=== PATIENT | female | born 1990 | race Caucasian/White ===

== ENCOUNTER → 2019-02-11 16:41 | Outpatient (CLI) | payer OTHER, SELFPAY ==
[2019-02-11 14:54] VITALS: BMI 32.3
[2019-02-11 18:45] LABS: Chlamydia Trachomatis by PCR Negative (Negative); Neisserai gonorrhoeae by PCR Negative (Negative); Probe Check PASS; Sample Adequacy Control PASS; Specimen Processing Control PASS
[2019-02-14 14:05] LABS: HPV Reflexed? NOT INDICATED
== END ==
PROVIDERS: Referring Provider Obstetrics & Gynecology; Visit Provider Obstetrics & Gynecology
DX: Z34.90 Encounter for supervision of normal pregnancy, unspecified, unspecified trimester (principal); Z12.4 Encounter for screening for malignant neoplasm of cervix
CPT/HCPCS: 87086; 87088; 87491; 87591; 87624; 88175; G0145

== ENCOUNTER → 2019-03-13 08:54 | Outpatient (CLI) | payer OTHER, SELFPAY ==
[2019-03-13 08:49] VITALS: BMI 32.3
[2019-03-13 09:46] LABS: Absolute Lymphocyte Count 2.08 X10^3/ul (0.83-4.51); Absolute Neutrophil Count 6.1 X10^3/uL (2.0-7.7); Basophil# 0.02 X10^3/uL; Basophil% 0.2 % (0-1); Eosinophil# 0.03 X10^3/uL; Eosinophils% 0.3 % (0-5); Hematocrit 35.4 % (37-47); Hemoglobin 12.4 g/dl (12.0-15.0); Lymphocyte # 2.08 X10^3/ul (4.0); Mean Corpuscular Hgb 30.1 pg (27.0-32.0); Mean Corpuscular Volume 85.9 fL (81-99); Monocyte# 0.44 X10^3/uL; Monocyte% 5.1 % (0-10); Neutrophil # 6.06 X10^3/uL (2.7-7.7); Neutrophil % 70.2 % (47-70); Platelet Count 196 K/mm3 (150-450); RBC Distribution Width CV 13.7 % (11.6-14.6); RBC Distribution Width SD 42.6 fl (35.1-43.9); Red Blood Count 4.12 M/mm3 (4.2-5.4); White Blood Count 8.7 K/mm3 (4.4-11.0)
[2019-03-13 10:00] LABS: POSITIVE COUNT NO; POSITIVE DIFFERENTIAL NO; POSITIVE MORPHOLOGY NO
[2019-03-13 10:09] LABS: Glucose Challenge Gest 1H 50g 125 mg/dL (70-140)
[2019-03-13 11:02] LABS: HIV - WCH Non-Reactive (Nonreactive); Rubella IgG 194.1 IU/mL
[2019-03-14 09:54] LABS: HEPATITIS B SURFACE AG Negative (Negative)
[2019-03-15 01:43] LABS: Rapid Plasmin Reagin (RPR) NONREACTIVE (NONREACTIVE)
== END ==
PROVIDERS: Referring Provider Obstetrics & Gynecology; Visit Provider Obstetrics & Gynecology
DX: Z34.90 Encounter for supervision of normal pregnancy, unspecified, unspecified trimester (principal)
CPT/HCPCS: 36415; 82950; 85025; 86592; 86703; 86762; 86850; 86900; 87340

== ENCOUNTER → 2019-04-09 11:54 | Outpatient (CLI) | payer OTHER, SELFPAY ==
[2019-03-13 08:49] VITALS: BMI 32.3
[2019-04-09 11:43] VITALS: BMI 32.3
--- NOTE | 2019-04-09 11:56 | US_ITS ---
STUDY: SECOND AND THIRD TRIMESTER OBSTETRICAL ULTRASOUND REASON FOR EXAM: Female, 28 years old. Anatomy screening. Complete 2nd trimester OB ultrasound. LMP: 11/13/2018. GA (LMP) 21 weeks 0 day, with ETTA 08/20/2019 TECHNIQUE: Transabdominal and transvaginal imaging. Transvaginal imaging was obtained for refined assessment of the cervix which was not well seen on transabdominal imaging. PRIOR ULTRASOUND: None. FINDINGS: Single live intrauterine gestation, breech presentation, cardiac rate 161 bpm. Amniotic fluid index normal 17 cm, maximum vertical pocket 5.1 cm. Cervical length 4.7 cm, closed. Placenta grade 0, posterior, not low-lying. Succenturiate band connecting to a small anterior placental lobe. The maternal adnexa are not assessed. BIOMETRY: BPD: 5.21: 21 weeks, 6 days HC: 19.6: 21 weeks, 6 days AC: 16.33: 21 weeks, 3 days FL: 3.46: 21 weeks, 0 days CI: 75% FL/BPD: 66% FL/AC: 21% HC/AC: 1.2 age by current US: 21 weeks, 4 days. ETTA by current US: 08/16/2019. Estimated weight: grams, +/- grams, %. Age by LMP: 21 weeks, 0 days. ETTA by LMP: 08/20/2019. ANATOMY: Gender: Male gender Cranium: Normal lateral ventricles. Normal choroid plexus. Normal cerebellum. Normal cisterna magna. Normal face, nose and lips. Chest: Normal 4-chamber heart. Abdomen/Pelvis: Normal diaphragm. Normal stomach. Normal abdominal wall. Normal cord insertion. Normal 3 vessel cord. Normal kidneys. Normal bladder. Spine: Normal cervical spine. Normal thoracic spine. Normal lumbar spine. Normal sacrum. Extremities: Normal bilateral upper extremities. Normal bilateral lower extremities. IMPRESSION: Satisfactory anatomic survey. No anatomic abnormality was observed. Succenturiate placenta. No acute or maternal abnormality is evident. Measurements are concordant with dates, within 4 days. Electronically Signed: Calin Trinh MD at 16:10 EDT Tel , Service support , STUDY: SECOND AND THIRD TRIMESTER OBSTETRICAL ULTRASOUND REASON FOR EXAM: Female, 28 years old. Anatomy screening. Complete 2nd trimester OB ultrasound. LMP: 11/13/2018. GA (LMP) 21 weeks 0 day, with ETTA 08/20/2019 TECHNIQUE: Transabdominal and transvaginal imaging. Transvaginal imaging was obtained for refined assessment of the cervix which was not well seen on transabdominal imaging. PRIOR ULTRASOUND: None. FINDINGS: Single live intrauterine gestation, breech presentation, cardiac rate 161 bpm. Amniotic fluid index normal 17 cm, maximum vertical pocket 5.1 cm. Cervical length 4.7 cm, closed. Placenta grade 0, posterior, not low-lying. Succenturiate band connecting to a small anterior placental lobe. The maternal adnexa are not assessed. BIOMETRY: BPD: 5.21: 21 weeks, 6 days HC: 19.6: 21 weeks, 6 days AC: 16.33: 21 weeks, 3 days FL: 3.46: 21 weeks, 0 days CI: 75% FL/BPD: 66% FL/AC: 21% HC/AC: 1.2 age by current US: 21 weeks, 4 days. ETTA by current US: 08/16/2019. Estimated weight: grams, +/- grams, %. Age by LMP: 21 weeks, 0 days. ETTA by LMP: 08/20/2019. ANATOMY: Gender: Male gender Cranium: Normal lateral ventricles. Normal choroid plexus. Normal cerebellum. Normal cisterna magna. Normal face, nose and lips. Chest: Normal 4-chamber heart. Abdomen/Pelvis: Normal diaphragm. Normal stomach. Normal abdominal wall. Normal cord insertion. Normal 3 vessel cord. Normal kidneys. Normal bladder. Spine: Normal cervical spine. Normal thoracic spine. Normal lumbar spine. Normal sacrum. Extremities: Normal bilateral upper extremities. Normal bilateral lower extremities. US/OB Anatomy Scan IMPRESSION: Satisfactory anatomic survey. No anatomic abnormality was observed. Succenturiate placenta. No acute or maternal abnormality is evident. Measurements are concordant with dates, within 4 days. Electronically Signed: Calin Trinh MD at 16:11 EDT Tel , Service support ,
== END ==
PROVIDERS: Referring Provider Obstetrics & Gynecology; Visit Provider Obstetrics & Gynecology
DX: O43.193 Other malformation of placenta, third trimester (principal); Z3A.00 Weeks of gestation of pregnancy not specified
CPT/HCPCS: 76805

== ENCOUNTER → 2019-05-15 10:11 | Outpatient (CLI) | payer OTHER, SELFPAY ==
[2019-05-15 10:04] VITALS: BMI 32.3
[2019-05-15 10:43] LABS: Absolute Lymphocyte Count 2.39 X10^3/uL (0.83-4.51); Absolute Neutrophil Count 7.1 X10^3/uL (2.0-7.7); Basophil# 0.06 X10^3/uL; Basophil% 0.6 % (0-1); Eosinophil# 0.09 X10^3/uL; Eosinophils% 0.9 % (0-5); Hematocrit 34.6 % (37-47); Hemoglobin 11.8 g/dL (12.0-15.0); Lymphocyte # 2.39 X10^3/ul (4.0); Lymphocyte % 23.2 % (19-41); Mean Corp Hgb Conc 34.1 g/dL (32-36); Mean Corpuscular Volume 90.8 fL (81-99); Monocyte# 0.64 X10^3/uL; Monocyte% 6.2 % (0-10); NRBC Flagged by Analyzer 0 % (0-5); Neutrophil # 7.05 X10^3/uL (2.7-7.7); Neutrophil % 68.3 % (47-70); Platelet Count 215 K/mm3 (150-450); RBC Distribution Width CV 13.6 % (11.6-14.6); RBC Distribution Width SD 45.4 fl (35.1-43.9); Red Blood Count 3.81 M/mm3 (4.2-5.4); White Blood Count 10.3 K/mm3 (4.4-11.0)
[2019-05-15 10:51] LABS: Glucose Challenge Gest 1H 50g 122 mg/dL (70-140)
== END ==
PROVIDERS: Referring Provider Obstetrics & Gynecology; Visit Provider Obstetrics & Gynecology
DX: Z34.92 Encounter for supervision of normal pregnancy, unspecified, second trimester (principal)
CPT/HCPCS: 36415; 82950; 85025

== ENCOUNTER → 2019-06-12 12:35 | Outpatient (CLI) | payer OTHER, SELFPAY ==
[2019-04-09 11:43] VITALS: BMI 32.3
[2019-06-12 10:48] VITALS: BMI 32.3
--- NOTE | 2019-06-12 12:38 | US_ITS ---
STUDY: SECOND AND THIRD TRIMESTER OBSTETRICAL ULTRASOUND - LIMITED REASON FOR EXAM: Female, 28 years old. , follow-up succenturiate Placenta LMP: 11/13/2018 PRIOR ULTRASOUND: 04/09/2019 TECHNIQUE: Transabdominal TECHNICAL QUALITY: Adequate. FINDINGS: There is a single intrauterine fetus. The fetus is in a cephalic presentation. There is demonstrated cardiac activity with a heart rate of 161 bpm. There is a normal amniotic fluid volume. The largest amniotic fluid pocket measures 6.1 cm. The amniotic fluid index (PAGE) is 18.7 cm. The placenta is posterior in location and is not low lying. There is a small lobe anteriorly consistent with succenturiate placenta. No placenta previa or vasa previa. There Are Grade 1 placental changes. The cervix measures 6.0 cm in length. BIOMETRY: BPD: 8.1 cm: 32 weeks, 4 days HC: 29.5 cm: 32 weeks, 4 days AC: 27.3 cm: 31 weeks, 3 days FL: 5.6 cm: 29 weeks, 5 days Age by LMP: 30 weeks, 1 days. ETTA by LMP: 08/20/2019. age by current US: 31 weeks, 4 days. ETTA by current US: 08/10/2019. Estimated weight: 1687 grams, +/- 246 grams, 69 percentile. Gender: US/OB Limited With Biometrics IMPRESSION: Living intrauterine of 31 weeks 4 days as described above. Posterior placenta with a succenturiate anterior lobe but without placenta previa or vasa previa. Electronically Signed: Calin Oneill MD at 10:33 EDT Tel , Service support ,
== END ==
PROVIDERS: Referring Provider Obstetrics & Gynecology; Visit Provider Obstetrics & Gynecology
DX: O43.193 Other malformation of placenta, third trimester (principal); Z3A.31 31 weeks gestation of pregnancy
CPT/HCPCS: 76816; 76817

== ENCOUNTER → 2019-07-24 12:51 | Outpatient (CLI) | payer OTHER, SELFPAY ==
[2019-07-24 10:20] VITALS: BMI 32.3
== END ==
PROVIDERS: Referring Provider Obstetrics & Gynecology; Visit Provider Obstetrics & Gynecology
DX: Z34.82 Encounter for supervision of other normal pregnancy, second trimester (principal)
CPT/HCPCS: 87081

== ENCOUNTER 2019-08-22 14:30 | Inpatient (IN) | payer SELFPAY, OTHER ==
[2019-02-11 14:54] VITALS: BMI 32.3
[2019-08-21 13:23] VITALS: BMI 32.3
[2019-08-22 15:01] VITALS: BMI 36.4
[2019-08-22] MEDS: Lactated Ringers 1,000 ML 50 ML IV (15:25)
[2019-08-22 15:41] LABS: Absolute Lymphocyte Count 2.41 X10^3/uL (0.83-4.51); Absolute Neutrophil Count 7.9 X10^3/uL (2.0-7.7); Basophil# 0.05 X10^3/uL; Basophil% 0.4 % (0-1); Eosinophil# 0.17 X10^3/uL; Eosinophils% 1.5 % (0-5); Hematocrit 37.5 % (37-47); Hemoglobin 12.7 g/dL (12.0-15.0); Lymphocyte # 2.41 X10^3/ul (4.0); Lymphocyte % 21.3 % (19-41); Mean Corp Hgb Conc 33.9 g/dL (32-36); Mean Corpuscular Hgb 30.5 pg (27.0-32.0); Mean Corpuscular Volume 90.1 fL (81-99); Mean Platelet Vol. 11.2 fl (6.2-12.0); Monocyte# 0.73 X10^3/uL; Monocyte% 6.5 % (0-10); NRBC Flagged by Analyzer 0 % (0-5); Neutrophil # 7.87 X10^3/uL (2.7-7.7); Neutrophil % 69.7 % (47-70); Platelet Count 196 K/mm3 (150-450); RBC Distribution Width CV 14.3 % (11.6-14.6); RBC Distribution Width SD 46.9 fl (35.1-43.9); Red Blood Count 4.16 M/mm3 (4.2-5.4); White Blood Count 11.3 K/mm3 (4.4-11.0)
[2019-08-22] MEDS: Nalbuphine 10 MG/ML Ampul IV (20:33)
[2019-08-22] MEDS: Lactated Ringers 500 ML 999 ML IV (21:24)
[2019-08-22] MEDS: fentaNYL-bupivacaine (epidural) 100 ML BAG EPIDURAL (22:07)
[2019-08-23] MEDS: Lactated Ringers 1,000 ML 200 ML IV (01:18)
[2019-08-23] MEDS: fentaNYL-bupivacaine (epidural) 100 ML BAG EPIDURAL (02:44)
[2019-08-23] MEDS: Lactated Ringers 500 ML 999 ML IV (04:18)
[2019-08-23] MEDS: Oxytocin 30 units/NS 500 ml 30 UNITS/500 ML IV.SOLN 334 UNITS IV (05:10)
--- NOTE | 2019-08-23 05:33 | HP.PCM_ITS ---
- Problem List (1) SROM (spontaneous rupture of membranes) Status: Acute (2) Status: Acute Comment: Prefers IOL at 41 wk (3) Influenza vaccination declined Status: Acute Comment: declined on 07/10/19 (4) PUPPP (pruritic urticarial papules and plaques of ) Status: Acute (5) Placenta succenturiata in third trimester Status: Acute Comment: nl growth (6) Obesity affecting Status: Acute Qualifiers: Comment: 1 tm glucola nl. encouraged healthy weight gain (7) Supervision of normal Status: Acute Qualifiers: Comment: PRR ETTA 08/20/19 boy Pablo Olson Trevor (8) History of delivery Status: Acute Comment: plan TOLAC, 70% likelihood of success. consent signed patient counseled regard R/B. History and Physical Date of Admission: 08/22/19 Intake Vital Signs 08/21/19 Body Mass Index (BMI) 32.3 08/21/19 Height 5 ft 6 in 08/21/19 Weight: 208 lb 08/21/19 Body Mass Index (BMI) 33.5 08/21/19 Blood Pressure 118/80 08/14/19 Body Mass Index (BMI) 32.3 Intake Visit Reasons: 40 WK OB Chief Complaint: est ob Lidar Technician Required: No Is patient in pain?: No Allergies No Known Allergies Allergy (Verified 08/22/19 15:05) Medications vitamin#30 30 mg iron-10 mg iron-folic acid 1 mg-omg3 capsule 1 cap PO DAILY cap 02/11/19 [History Confirmed 08/22/19] Last Menstral Period: 11/13/18 Zika: Zika virus screening: Negative : No PFSH PFSH Surgical History delivery delivered (Acute) Family History Grandfather Colon cancer Diabetes Social History (Updated 08/22/19 @ 18:10 by Aranza Zamora MD) Smoking Status: Never smoker alcohol intake: never substance use type: does not use caffeine: Yes what type of physical activity do you participate in: walking seatbelt use: always do you feel safe at home: Yes additional social history: [place] Patient is unemployed Pregancy History 2 Elective abortions Hx Para 1 Spontaneous abortions Hx # Term Pregnancies 1 Ectopic pregnancies Hx # Pregnancies Multiple births # of living children 1 Past Pregnancies Del. Date Name GA/Weeks Outcome Route Bth Weight Gen Labor Lgth Anesthesia Del Locatn Provider FOB Unknown 2016 Wesley Fox live - full term 7l bs 3oz Male Minnie Murray Delivery Date: On 02/11/19 @ 14:59 Denia Carrillo Breech,failed version HPI 40 WK OB: Details: GERARD ROSA is a 28 year old who presents with SROM clear fluid. she is having regular contractions and some bloody show. she has good FM OB Visit ETTA Calculator Estimated Delivery Date Method Current WG Current Estimate 08/20/19 LMP (Certain) 40w 2d Expected Delivery Route/Plan tolac patient counseled regarding risks/benefits of trial of labor versus repeat . ACOG and uptodate education given to patient. % likelihood of success per calculator TOLAC consent form signed: yes Labor Preferences- labor support person: trevor pain management options preferred: minimal intervention cut cord/dad catch: : PP control planned: [] discussed possible routes of delivery and associated risks: [] special requests: [] Specific Issue/Plans flu vaccine: declines tdap vaccine: declines rhogam: na LARC form signed: declines Problem list reviewed and updated with the most current plan of care details and appropriate orders placed. Relevant counseling for the gestational age provided. Continue routine care and follow up unless otherwise noted in visit notes/problem list details Initial Weight: 200 lb Date EGA Weight BP Urine Prot Glucose FHR FuHt Pres Mov CTX Dilation Effaced St Visit Note 03/13/19 17w 1d 197 lb (-3 lb) 104/62 145 no vb lof cramping. bloodwork today 04/09/19 21w 0d 197 lb 4 oz (-2 lb 12 oz) 112/72 Negative Negative 140 21 no vb cramping anatomy us today 05/15/19 26w 1d 201 lb (+16 oz) 98/56 Negative Negative 150 26 no vb lof good fm no regular ctx cbc gct considering tdap 06/12/19 30w 1d 203 lb 6 oz (+3 lb 6 oz) 114/74 Negative Negative 140 31 Breech Active absent no vb lof signed consent forms 06/26/19 32w 1d 205 lb (+5 lb) 116/74 Negative Negative 140 33 Active absent no vb lof 07/10/19 34w 1d 208 lb (+8 lb) 110/84 Negative Negative 140 35 no vb lof good fm no reg ctx 07/24/19 36w 1d 208 lb (+8 lb) 108/80 Trace Negative 150 37 Cephalic 1.5 20 -4 no vb lof good fm no reg ctx 07/31/19 37w 1d 209 lb 6 oz (+9 lb 6 oz) 110/64 Negative Negative 143 38 Cephalic 1.5 -4 Confirmed per US cephalic. NO VB, LOF 08/07/19 38w 1d 210 lb 2 oz (+10 lb 2 oz) 110/80 Negative Negative 140 40 Cephalic no vb lof good fm no regular ctx plan iol or repeat cs at 41 weeks 08/14/19 39w 1d 211 lb (+11 lb) 130/80 Negative Negative 142 40 Cephalic 1.5 40 -3 NO VB, LOF. Good FM NO VB, LOF. Good FM. Prefers IOL at 41 wk 08/21/19 40w 1d 208 lb (+8 lb) 118/80 Negative Negative 140 41 Cephalic 2.5 no vb lof good fm no regular ctx membranes swept Visit Notes Visit Date: 08/21/19 ??no vb lof good fm no regular ctx membranes swept ??Aranza Zamora MD on 08/22/19 Visit Date: 08/14/19 ??NO VB, LOF. Good FM. Prefers IOL at 41 wk ?KRISTIN Sarah on 08/14/19 ??NO VB, LOF. Good FM ??KRISTIN Sarah on 08/14/19 Visit Date: 08/07/19 ??no vb lof good fm no regular ctx plan iol or repeat cs at 41 weeks ??Aranza Zamora MD on 08/07/19 Visit Date: 07/31/19 ??Confirmed per US cephalic. NO VB, LOF ??KRISTIN Sarah on 07/31/19 Visit Date: 07/24/19 ??no vb lof good fm no reg ctx ??Aranza Zamora MD on 07/24/19 Visit Date: 07/10/19 ??no vb lof good fm no reg ctx ??Aranza Zamora MD on 07/10/19 Visit Date: 06/26/19 ??no vb lof ??Aranza Zamora MD on 06/26/19 Visit Date: 06/12/19 ??no vb lof signed consent forms ??Aranza Zamora MD on 06/12/19 Visit Date: 05/15/19 ??no vb lof good fm no regular ctx cbc gct considering tdap ??Aranza Zamora MD on 05/15/19 Visit Date: 04/09/19 ??no vb cramping anatomy us today ??Aranza Zamora MD on 04/09/19 Visit Date: 03/13/19 ??no vb lof cramping. bloodwork today ??Aranza Zamora MD on 03/13/19 ACOG First Trimester First Trimester: Desire for , Alcohol, Tobacco Cessation, Illicit/Recreational Drug/Substance Use, Intimate Partner Violence, Barriers to care, Unstable Housing, Communication Barriers, Environmental/Work Hazards, Anticipated Course of Care, Toxoplasmosis Precations, Use of Any medications, Sexual activity, Exercise, Dental Care, Sauna/Hot tub use, Seat Belt use, Childbirth classes/Hospital facilities, , Travel, Indications for US and Screening for Aneuploidy Second Trimester Second Trimester: Signs and Symptoms of Labor, Selecting a care provider, Reproductive Life Planning, Care Planning, Tobacco Cessation, Depression/Anxiety and Intimate Partner Violence Third Trimester Third Trimester: Pain Management Plans, Labor support person(s), Immediate Larc, Movement Monitoring and Infant Feeding Yes ; discussed Trial of Labor after Counseling or discussed Circumcision preference Diagnostics Diagnostics Diagnostics Blood Type AB POSITIVE 08/22/19 Antibody Screen NEGATIVE 08/22/19 Glucose 1 Hr 50 gm 122 mg/dL (70-140) 05/15/19 Hgb 12.7 g/dL (12.0-15.0) 08/22/19 Hct 37.5 % (37-47) 08/22/19 Details: HIV: Urine Culture: Sequential Screen: NIPT Screen: ROS Const Reports system reviewed and no additional complaints, except as docu Card Reports system reviewed and no additional complaints, except as docu Resp Reports system reviewed and no additional complaints, except as docu GI Reports system reviewed and no additional complaints, except as docu, Reports nausea Reports system reviewed and no additional complaints, except as docu Musc Reports system reviewed and no additional complaints, except as docu Exam Const General: cooperative, healthy appearing, comfortable, anxious [facility] Head: normal to inspection Nose: external nose normal Face and sinus: normal facial exam Neck Neck: normal visual inspection, full ROM, no lymphadenopathy Thyroid: thyroid normal Chest Chest palpation & inspection: normal inspection of the chest Resp Effort & Inspection: normal respiratory effort GI Inspection: normal to inspection Palpation: soft, other (gravid uterus) Other: infant vertex and appropriate size for gestational age Other: Cervical Exam: Extrem General: pedal edema Results [id number] Office Urine Glucose Negative Last Edit by Denia Carrillo on 08/21/19 13:2 7 Office Urine Protein Negative Last Edit by Denia Crarillo on 08/21/19 13:2 7 Assessment & Plan Problems 1. Z34.90 2. Influenza vaccination declined Z28. 3. PUPPP (pruritic urticarial papules and plaques of ) O26.86 4. Obesity affecting in second trimester O99.212 5. Encounter for supervision of other normal in second trimester Z34.82 6. History of delivery Z98.891 7. Placenta succenturiata in third trimester O43.193 Orders plan admission IAL TOLAC- consent signed gbs neg plan epidural Orders: POC Urinalysis 2 Dip (Clinic) 08/21/19 Coding Level of Care Code OB Routine Diagnoses Z34.90 Influenza vaccination declined Z28.21 PUPPP (pruritic urticarial papules and plaques of ) O26.86 Obesity affecting in second trimester O99.212 ??Trimester: second trimester Encounter for supervision of other normal in second trimester Z34.82 ??Normal : other normal ??Trimester: second trimester History of delivery Z98.891 Placenta succenturiata in third trimester O43.193
--- NOTE | 2019-08-23 05:34 | PCM.OPRPT ---
Problem List (1) SROM (spontaneous rupture of membranes) Status: Acute (2) Status: Acute Comment: Prefers IOL at 41 wk (3) Influenza vaccination declined Status: Acute Comment: declined on 07/10/19 (4) PUPPP (pruritic urticarial papules and plaques of ) Status: Acute (5) Placenta succenturiata in third trimester Status: Acute Comment: nl growth (6) Obesity affecting Status: Acute Qualifiers: Comment: 1 tm glucola nl. encouraged healthy weight gain (7) Supervision of normal Status: Acute Qualifiers: Comment: PRR ETTA 08/20/19 sis Olson Trevor (8) History of delivery Status: Acute Comment: plan TOLAC, 70% likelihood of success. consent signed patient counseled regard R/B. Vaginal Delivery Maternal Presentation: Active Labor, Spontaneous Rupture of Membranes ial 40w TOLAC Amniotic Membrane Rupture Type: Spontaneous at home Amniotic Fluid Description: Clear Final ETTA: 08/19/19 Gestational age: 40 Weeks and 4 Days Date of Procedure: 08/23/19 Pre-Operative Diagnosis: ial tolac Post-Operative Diagnosis: same Surgery/ Procedure Performed: Spontaneous Vaginal Delivery Type of Anesthesia: Epidural Description of Procedure: Patient began pushing and delivered the head in the KOURTNEY presentation. The head was delivered atraumatically and a tight nuchal cord ?1 was identified and was cut on the perineum after anterior shoulder delivery because it could not be reduced over the infant's head. The posterior shoulders delivered without complication followed by the rest of the infant and the infant was placed on the maternal abdomen. Delayed cord clamping was employed for approximately 60 seconds. Cord was clamped and cut and gentle traction was applied to the cord and the placenta delivered spontaneously immediately following it was noted to be intact with three-vessel cord. The perineum and vagina were inspected and noted to have a second-degree perineal laceration that was repaired in the usual fashion with 3-0 Vicryl Rapide. EBL was 100 cc. Patient and infant tolerated delivery well. Presentation: KOURTNEY Placental Delivery Description: Spontaneous Placenta Disposition: [facility] Cord Vessel Description: 3 Vessels Cord Entanglement: None Estimated Blood Loss: 200 Infant A gender: Male Episiotomy Description: None Laceration: Perineal Extension/lac, 2nd degree Medications given after delivery: IV Pitocin Complications: None
[2019-08-23] MEDS: Naproxen 250 MG Tablet 500 MG PO ×2 (08:37→17:23)
[2019-08-23 12:00] VITALS: BP 117/63; PULSE 123; TEMP 36.6
[2019-08-23] MEDS: Acetaminophen 500 MG Tablet 1000 MG PO (13:52)
[2019-08-23 15:45] VITALS: BP 114/58; PULSE 68; RESP 16; TEMP 36.9
--- NOTE | 2019-08-23 17:04 | CASEMGMT ---
Social work Labor and Delivery Social work consulted received today for PHQ9. Score is 4. Chart reviewed and then met with mother of baby for assessment this date. Full assessment to follow in the chart. Plan: MOB and baby to home. MOB has been provided with resources for mood and anxiety disorders, signs to look for, when to get further help, and list of community services in [facility]. -KYLER Cruz, FINISHER OPERATOR
[2019-08-23 20:20] VITALS: BP 109/60; PULSE 67; RESP 18; TEMP 36.2; O2SAT 97
--- NOTE | 2019-08-23 21:45 | DCINST_ITS ---
Discharge Diet: No Restrictions Discharge Activity: Return to Normal Activity, May not drive while taking narcotic pain medications., May Shower May resume sexual activity in: 4-6 weeks Call your doctor if your incision/area has: Continuous Slow Oozing, Sudden Increased Bleeding, Increased Pain/ Swelling, Increased Redness, Foul Smelling Discharge Additional Instructions: If you experience any of the following, contact your healthcare provider. * Bleeding that soaks a pad every hour for 2 hours * Fever 100.4 or higher * Unrelieved incision or abdominal pain * Swelling, redness, discharge or bleeding from your incision or episiotomy site * Your incision begins to separate * Problems urinating (including inability to urinate or burning while urinating). * Visual changes * Severe headache * Flu-like symptoms * Pain or redness in one of both of your breasts * Pain, warmth, tenderness or swelling in your legs, especially the calf area * Frequent nausea and vomiting * Symptoms of depression or anxiety If you experience any of the following, call 911 or go to the nearest Emergency Room. * Chest pain * Problems breathing * Seizure activity * Partial or complete paralysis of a body part, slurred speech, weakness or drooping of the face, or a sudden inability to walk or hold your balance Allergies/Adverse Reactions: Allergies No Known Allergies Allergy (Verified 08/22/19 15:05) Medications to take at Discharge vitamin#30 30 mg iron-10 mg iron-folic acid 1 mg-omg3 capsule 1 cap PO DAILY cap 02/11/19 Please Follow Up With: Aranza Zamora MD - [phone] When: Call to make an appointment with your doctor in 6 weeks. If you had elevated Blood pressure or 4th degree laceration you will need to be seen in 2 weeks. Test Results: Test results from this visit will be discussed in further detail at your follow- up appointment, if applicable.
--- NOTE | 2019-08-23 21:45 | PCM.DCVAG ---
Discharge Diet: No Restrictions Discharge Activity: Return to Normal Activity, May not drive while taking narcotic pain medications., May Shower May resume sexual activity in: 4-6 weeks Call your doctor if your incision/area has: Continuous Slow Oozing, Sudden Increased Bleeding, Increased Pain/ Swelling, Increased Redness, Foul Smelling Discharge Additional Instructions: If you experience any of the following, contact your healthcare provider. Bleeding that soaks a pad every hour for 2 hours Fever 100.4 or higher Unrelieved incision or abdominal pain Swelling, redness, discharge or bleeding from your incision or episiotomy site Your incision begins to separate Problems urinating (including inability to urinate or burning while urinating). Visual changes Severe headache Flu-like symptoms Pain or redness in one of both of your breasts Pain, warmth, tenderness or swelling in your legs, especially the calf area Frequent nausea and vomiting Symptoms of depression or anxiety If you experience any of the following, call 911 or go to the nearest Emergency Room. Chest pain Problems breathing Seizure activity Partial or complete paralysis of a body part, slurred speech, weakness or drooping of the face, or a sudden inability to walk or hold your balance Allergies/Adverse Reactions: Allergies No Known Allergies Allergy (Verified 08/22/19 15:05) Medications to take at Discharge vitamin#30 30 mg iron-10 mg iron-folic acid 1 mg-omg3 capsule 1 cap PO DAILY cap 02/11/19 Please Follow Up With: Aranza Zamora MD - [phone] When: Call to make an appointment with your doctor in 6 weeks. If you had elevated Blood pressure or 4th degree laceration you will need to be seen in 2 weeks. Test Results: Test results from this visit will be discussed in further detail at your follow-up appointment, if applicable.
[2019-08-23 23:45] VITALS: BP 106/54; PULSE 79; RESP 18; TEMP 36.2; O2SAT 98
[2019-08-24 03:25] VITALS: BP 108/56; PULSE 77; RESP 16; TEMP 36.1; O2SAT 97
[2019-08-24] MEDS: Naproxen 250 MG Tablet 500 MG PO ×2 (03:28→11:53)
--- NOTE | 2019-08-24 09:19 | PCM.PN.OB ---
Patient Problems: Active and Suspected Problems (Last Reviewed 08/21/19 @ 13:22 by Denia Carrillo) SROM (spontaneous rupture of membranes) (Acute) Subjective: doing well no complaints pain controlled no CP SOB N V ambulating well tolerating po lochia moderate, going well - Physical Exam Vitals/I&O's: Vital Signs Temp Pulse Resp BP Pulse Ox 97.0 F L 77 16 108/56 L 97 08/24/19 03:25 08/24/19 03:25 08/24/19 03:25 08/24/19 03:25 08/24/19 03:25 Oxygen Delivery Method Room Air Weight: 205 lb 11.06 oz Body Mass Index (BMI) 36.4 Intake and Output for Last 24 Hours 08/22/19 08/23/19 08/24/19 23:59 23:59 23:59 Intake Total 1249.17 / 1249.17 2346.67 / 2346.67 Output Total 200 / 200 400 / 400 Balance 1049.17 / 1049.17 1946.67 / 1946.67 General: Alert, Oriented x3 Current Medications Acetaminophen (Tylenol) 1,000 mg PO Q8H PRN PRN PRN Reason: Pain Score 1-3/10 Last Admin: 08/23/19 13:52 Dose: 1,000 mg Documented by: Bisacodyl (Dulcolax) 10 mg RECTAL UD PRN PRN Reason: If no BM Dibucaine (Dibucaine) 1 applic TOPICAL TID PRN PRN; Protocol PRN Reason: Discomfort Hydrocortisone (Hytone) 1 applic TOPICAL TID PRN PRN; Protocol PRN Reason: Discomfort Methylergonovine Maleate (Methergine) 0.2 mg IM X1 PRN PRN Reason: Excess bleeding/uterine atony Naproxen (Naprosyn) 500 mg PO Q8H PRN PRN PRN Reason: Pain Score 1-3/10 Last Admin: 08/24/19 03:28 Dose: 500 mg Documented by: Ondansetron HCl (Zofran) 4 mg IV Q4H PRN PRN PRN Reason: Nausea Oxycodone HCl (Oxyir) 5 - 10 mg PO Q4H PRN PRN PRN Reason: Pain Score 4-10/10 Senna/Docusate Sodium (Senokot-S, Radha-Colace) 1 - 2 tablet PO DAILY PRN PRN PRN Reason: Constipation Simethicone (Mylicon) 80 mg PO PCHS PRN PRN Reason: Indigestion/Stomach pain Sodium Chloride () 5 - 15 ml IV UD PRN PRN Reason: SALINE FLUSH Medical Necessity - Tobacco Use Smoking Status: Never smoker Assessment/Plan All Active Problems (Last Reviewed 08/21/19 @ 13:22 by Denia Carrillo) SROM (spontaneous rupture of membranes) (Acute) (Acute) Influenza vaccination declined (Acute) PUPPP (pruritic urticarial papules and plaques of ) (Acute) Placenta succenturiata in third trimester (Acute) Obesity affecting (Acute) Supervision of normal (Acute) History of delivery (Acute) s/p PPD # 1 1. routine post delivery care 2. breast feeding- support given 3. rh positive 4. rubella immune
[2019-08-24 10:00] VITALS: BP 106/60; PULSE 79; RESP 16; TEMP 36.6; O2SAT 100
--- NOTE | 2019-08-26 10:08 | CASEMGMT ---
Social Work Assessment (late entry of assessment occurring on 08.23.2019) Labor and Delivery Unit Date of Referral: 08.23.2019 Time of Referral: 930 Referred By: Dr. Zamora Date of Intervention: 08.23.2019 Time of Intervention: 1500 Reason for Referral: PHQ9 score of 4 History obtained from: medical records and mother of baby (JESSIE) Santa Guillermo Household composition: MOB, father of baby (FOB) and their older child. MOB reports home situation is safe and adequate. Patient's parent/guardian status: JESSIE is age 26, to FOB Trevor Guillermo. MOB and FOB are from the [facility]. MOB denies any form of abuse in this marriage, denies any safety concerns at home. MOB and FOB now have 2 children: Pablo (born 08.23.2017) and Wesley (born 2015 at [facility]). Medical History: JESSIE is G2, P1 to 2 after delivering Pablo. care starting at [address] Zamora. Delivery a , with MOB reporting that first delivery was an emergency . Baby Pablo born at 40 weeks, weight 8 pounds 1 ounce, Apgars 3 and 9 at 1 and 5 minutes of life. Cord wrapped around baby?s neck at . Educational Status: JESSIE has an 8th grade education, as is the norm for the [employer] community. No reported issues with reading, writing, or comprehension. Financial Status: FOErica is employed, and JESSIE works in the home. Infant Supplies: It is reported the family has all needed supplies to get started including a safe sleep space for baby and a car seat. 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 Programs/Agencies Involved: No current agency involvement. Reports [facility] just ended last week for older son Wesley. Children Services/Legal Issues: None reported. Behavioral Health Issues: Mental Health History: JESSIE reports she may have had the baby blues for about a week and a half after Wesley was born, indicated it was a lot to take in with having a delivery. MOB denies any history of thoughts, planning, attempts, or intent or suicide. Denies any history of medicine or counseling. Substance Use History: MOB denies. Family History: None reported. Drug Screens: None noted in chart for MOB or baby. Family/Social Stressors: No stressors shared or discussed other than MOB feeling lack of energy, little interest in things, and feeling badly about self over the last week or two. MOB attributes this to mood and end of . Support Systems: MOB reports FOB is support. MOB will have help at home for 6 weeks from either MOB?s sister or FOB?s sister, which MOB reports to feel will be a positive thing. Depression/Shaken Baby/Safe Sleeping: Information given on all topics. ASSESSMENT: Met with MOB in room alone. MOB up and moving around, attending to baby. MOB handled baby appropriately and gently. MOB repots to be feeling okay right now, denies feeling that symptoms check on the PHQ9 are impacting care of self or baby. Educated MOB that if symptoms change or worsen this would be an indicator to talk to Dr. Zamora. MOB voiced understanding and agreement, as well as reported that if medication is ever recommended would be willing to take if would be helpful to self and family. Talked with MBO about risk factors and what to look for. MOB denies any concerns currently. Reports to feel a connection to the baby and to feel good physically right now which is helpful. MOB declined a [facility] referral for this baby but reports to know how to access if the need arises in the future. MOB accepting of mood and anxiety disorder packet, as well as accepted resource list of agencies for [facility]. MOB held good eye contact, affect appropriate and normal. PLAN: MOB and baby to home when ready. Resource information for home going in place. No other services requested or indicated. -MICHAEL Cruz, SALES LEDGER ADMINISTRATOR
== END 2019-08-24 13:50 | disposition home or self-care (01) | DRG 807 ==
PROVIDERS: Admitting Provider Obstetrics & Gynecology; Referring Provider Obstetrics & Gynecology; Visit Provider Obstetrics & Gynecology
DX: O34.219 Maternal care for unspecified type scar from previous cesarean delivery (principal); Z37.0 Single live birth; O42.92 Full-term premature rupture of membranes, unspecified as to length of time between rupture and onset of labor; O70.1 Second degree perineal laceration during delivery; O69.1XX0 Labor and delivery complicated by cord around neck, with compression, not applicable or unspecified; Z28.21 Immunization not carried out because of patient refusal; O99.214 Obesity complicating childbirth; E66.9 Obesity, unspecified; O26.86 Pruritic urticarial papules and plaques of pregnancy (PUPPP); O43.193 Other malformation of placenta, third trimester; Z3A.40 40 weeks gestation of pregnancy; Z87.59 Personal history of other complications of pregnancy, childbirth and the puerperium
CPT/HCPCS: 59025; 59050; 85025; 86850; 86900; 86901; 99218; J7120; G0378

== ENCOUNTER 2022-01-10 08:22 | Outpatient (CLI) | payer SELFPAY, OTHER ==
--- NOTE | 2022-01-10 08:28 | US_ITS ---
STUDY: SECOND AND THIRD TRIMESTER OBSTETRICAL ULTRASOUND - LIMITED REASON FOR EXAM: Female, 31 years old well being LMP: ALETHA second 2021. PRIOR ULTRASOUND: None. TECHNIQUE: Transabdominal TECHNICAL QUALITY: Adequate. FINDINGS: There is a single intrauterine fetus. The fetus is in a variable presentation. There is demonstrated cardiac activity with a heart rate of 141 bpm. There is a normal amniotic fluid volume. The amniotic fluid index (PAGE) is within normal limits. The placenta is anterior and low lying but not previa in location. There are Grade 0 placental changes. The cervix measures 4.5 cm in length. BIOMETRY: BPD: 2.94 cm: 15 weeks, 2 days HC: 10.62 cm: 15 weeks, 0 days AC: 8.87 cm: 15 weeks, 0 days FL: 1.36 cm: 14 weeks, 0 days Age by LMP: 14 weeks, 1 days. ETTA by LMP: 07/10/2022. age by current US: 14 weeks, 5 days. ETTA by current US: 07/06/2022. Estimated weight: 103 grams, +/- 15 grams, 69 percentile. US/OB Limited With Biometrics IMPRESSION: Single live intrauterine gestation with a mean gestational age of 14 weeks and 5 days. There is evidence of an anterior low-lying placenta or previa. Electronically Signed: Jones Bernardo MD at 15:17 EDT ,
== END 2022-01-10 23:59 | disposition home or self-care (01) ==
PROVIDERS: Visit Provider Obstetrics & Gynecology
DX: Z34.92 Encounter for supervision of normal pregnancy, unspecified, second trimester (principal); Z3A.14 14 weeks gestation of pregnancy
CPT/HCPCS: 76816

== ENCOUNTER → 2022-01-20 | Outpatient (CLI) | payer OTHER, SELFPAY ==
[2022-01-20 14:48] LABS: Absolute Lymphocyte Count 2.38 X10^3/uL (0.83-4.51); Absolute Neutrophil Count 6.2 X10^3/uL (2.0-7.7); Basophil# 0.04 X10^3/uL; Basophil% 0.4 % (0-1); Eosinophil# 0.08 X10^3/uL; Eosinophils% 0.9 % (0-5); Hematocrit 35.5 % (37-47); Hemoglobin 12.1 g/dL (12.0-15.0); Lymphocyte # 2.38 X10^3/ul (0.83-4.51); Lymphocyte % 25.5 % (19-41); Mean Corp Hgb Conc 34.1 g/dL (32-36); Mean Corpuscular Hgb 29.9 pg (27.0-32.0); Mean Corpuscular Volume 87.7 fL (81-99); Monocyte# 0.53 X10^3/uL; Monocyte% 5.7 % (0-10); NRBC Flagged by Analyzer 0 % (0-5); Neutrophil # 6.24 X10^3/uL (2.7-7.7); Neutrophil % 66.9 % (47-70); Platelet Count 216 K/mm3 (150-450); RBC Distribution Width CV 13.2 % (11.6-14.6); RBC Distribution Width SD 42.3 fl (35.1-43.9); Red Blood Count 4.05 M/mm3 (4.2-5.4); White Blood Count 9.3 K/mm3 (4.4-11.0)
[2022-01-20 15:25] LABS: Glucose Challenge Gest 1H 50g 147 mg/dL (70-140)
[2022-01-27 14:10] LABS: HPV Reflexed? NOT INDICATED
== END | disposition home or self-care (01) ==
PROVIDERS: Referring Provider Obstetrics & Gynecology; Visit Provider Obstetrics & Gynecology
DX: Z34.90 Encounter for supervision of normal pregnancy, unspecified, unspecified trimester (principal)
CPT/HCPCS: 36415; 82950; 85025; 86850; 86900; 86901; 87086; 87088; 88175; G0145

== ENCOUNTER → 2022-01-31 | Outpatient (CLI) | payer OTHER, SELFPAY ==
[2022-01-31 08:25] LABS: Glucose GTT-Gestation. Fasting 101 mg/dL (<105)
[2022-01-31 09:27] LABS: Glucose GTT-Gestational 1 Hr 176 mg/dL (<190)
[2022-01-31 10:56] LABS: Glucose GTT-Gestational 2 Hr 131 mg/dL (<165)
[2022-01-31 11:58] LABS: Glucose GTT-Gestational 3 Hr 85 L (<145)
== END | disposition home or self-care (01) ==
LOC: LAB 07:39
PROVIDERS: PCP Family Medicine; Referring Provider Obstetrics & Gynecology; Visit Provider Obstetrics & Gynecology
DX: Z13.1 Encounter for screening for diabetes mellitus (principal)
CPT/HCPCS: 36415; 82951; 82952

== ENCOUNTER → 2022-02-17 | Outpatient (CLI) | payer SELFPAY, OTHER ==
--- NOTE | 2022-02-17 10:52 | US_ITS ---
STUDY: SECOND AND THIRD TRIMESTER OBSTETRICAL ULTRASOUND REASON FOR EXAM: Female, 31 years old . anatomy. LMP: 10/03/2021 TECHNIQUE: Transabdominal and Transvaginal TECHNICAL QUALITY: Adequate. PRIOR ULTRASOUND: None. FINDINGS: There is a single intrauterine fetus. The fetus is in a variable presentation. There is demonstrated cardiac activity with a heart rate of 140 bpm. There is a normal amniotic fluid volume. The largest amniotic fluid pocket measures 5 cm. The amniotic fluid index (PAGE) is within normal limits. The placenta is anterior in location and is not low lying. There are Grade 0 placental changes. The cervix measures 4.7 cm in length. The bilateral adnexal regions are normal. BIOMETRY: BPD: 4.8 cm: 20 weeks, 3 days HC: 17.65 cm: 20 weeks, 0 days AC: 15.5 cm: 20 weeks, 4 days FL: 3.05 cm: 19 weeks, 3 days CI: 78% FL/BPD: 64% FL/HC: FL/AC: 20% HC/AC: 1.14 age by current US: 20 weeks, 0 days. ETTA by current US: 07/07/2022. Estimated weight: 339 grams, +/- 51 grams, 79 %. age by prior US: 20 weeks, 1 days. ETTA by prior US: 07/06/2022. Age by LMP: 19 weeks, 4 days. ETTA by LMP: 07/10/2022. ANATOMY: Gender: Female Cranium: Normal lateral ventricles. Normal choroid plexus. Normal cerebellum. Normal cisterna magna. Normal face, nose and lips. Chest: Normal 4-chamber heart. Abdomen/Pelvis: Normal diaphragm. Normal stomach. Normal abdominal wall. Normal cord insertion. Normal 3 vessel cord. Left renal pelvis is mildly dilated at 5 mm. Normal bladder. Spine: Normal cervical spine. Normal thoracic spine. Normal lumbar spine. Normal sacrum. Extremities: Normal bilateral upper extremities. Normal bilateral lower extremities. US/OB Anatomy Scan IMPRESSION: Single live intrauterine gestation with a mean gestational age of 20 weeks and 1 day. The measurements are obtained following thin the normal expected range. Electronically Signed: Jones Bernardo MD at 12:48 EDT ,
== END | disposition home or self-care (01) ==
LOC: US 10:51
PROVIDERS: PCP Family Medicine; Referring Provider Obstetrics & Gynecology; Visit Provider Obstetrics & Gynecology
DX: O44.42 Low lying placenta NOS or without hemorrhage, second trimester (principal); Z3A.20 20 weeks gestation of pregnancy
CPT/HCPCS: 76805; 76817

== ENCOUNTER → 2022-04-15 | Outpatient (CLI) | payer OTHER, SELFPAY ==
[2022-04-15 12:01] LABS: Glucose Challenge Gest 1H 50g 145 mg/dL (70-140)
[2022-04-15 12:11] LABS: Absolute Lymphocyte Count 2.06 X10^3/uL (0.83-4.51); Absolute Neutrophil Count 6.4 X10^3/uL (2.0-7.7); Basophil# 0.05 X10^3/uL; Basophil% 0.5 % (0-1); Eosinophil# 0.07 X10^3/uL; Eosinophils% 0.8 % (0-5); Hematocrit 34.3 % (37-47); Hemoglobin 11.6 g/dL (12.0-15.0); Lymphocyte # 2.06 X10^3/ul (0.83-4.51); Lymphocyte % 22.2 % (19-41); Mean Corp Hgb Conc 33.8 g/dL (32-36); Mean Corpuscular Hgb 30.4 pg (27.0-32.0); Mean Corpuscular Volume 89.8 fL (81-99); Mean Platelet Vol. 9.9 fl (6.2-12.0); Monocyte# 0.56 X10^3/uL; NRBC Flagged by Analyzer 0 % (0-5); Neutrophil # 6.36 X10^3/uL (2.7-7.7); Neutrophil % 68.8 % (47-70); Platelet Count 223 K/mm3 (150-450); RBC Distribution Width CV 13.4 % (11.6-14.6); Red Blood Count 3.82 M/mm3 (4.2-5.4); White Blood Count 9.3 K/mm3 (4.4-11.0)
== END | disposition home or self-care (01) ==
LOC: PAVLAB 11:28
PROVIDERS: PCP Family Medicine; Referring Provider Nurse Practitioner Women's Health; Visit Provider Nurse Practitioner Women's Health
DX: Z34.90 Encounter for supervision of normal pregnancy, unspecified, unspecified trimester (principal); Z13.1 Encounter for screening for diabetes mellitus
CPT/HCPCS: 36415; 82950; 85025

== ENCOUNTER → 2022-04-25 | Outpatient (CLI) | payer OTHER, SELFPAY ==
[2022-04-25 08:09] LABS: Glucose GTT-Gestation. Fasting 99 mg/dL (<105)
[2022-04-25 08:59] LABS: Glucose GTT-Gestational 1 Hr 211 mg/dL (<190)
[2022-04-25 09:57] LABS: Glucose GTT-Gestational 2 Hr 156 mg/dL (<165)
[2022-04-25 12:08] LABS: Glucose GTT-Gestational 3 Hr 76 L (<145)
== END | disposition home or self-care (01) ==
LOC: LAB 07:06
PROVIDERS: PCP Family Medicine; Referring Provider Obstetrics & Gynecology; Visit Provider Obstetrics & Gynecology
DX: Z13.1 Encounter for screening for diabetes mellitus (principal)
CPT/HCPCS: 36415; 82951; 82952

== ENCOUNTER → 2022-06-15 | Outpatient (CLI) | payer SELFPAY, OTHER ==
--- NOTE | 2022-06-15 09:07 | US_ITS ---
STUDY: SECOND AND THIRD TRIMESTER OBSTETRICAL ULTRASOUND REASON FOR EXAM: Female, 31 years old growth -- 36 weeks -- gestational dm LMP: 10/03/2021. TECHNIQUE: Transabdominal TECHNICAL QUALITY: Adequate. PRIOR ULTRASOUND: Comparison is made with prior study dated 02/17/2022. FINDINGS: There is a single intrauterine fetus. The fetus is in a cephalic presentation. There is demonstrated cardiac activity with a heart rate of 143 bpm. There is a normal amniotic fluid volume. The largest amniotic fluid pocket measures 4.7 cm. The amniotic fluid index (PAGE) is 15.1 cm. The placenta is anterior in location and is not low lying. There are Grade 1 placental changes. The cervix measures 4.6 cm in length. The adnexal regions are not visualized. BIOMETRY: BPD: 9.6 cm: 39 weeks, 1 days HC: 34.3 cm: 39 weeks, 4 days AC: 35.7 cm: 39 weeks, 5 days FL: 7 cm: 35 weeks, 6 days CI: 83% FL/BPD: 73% FL/HC: FL/AC: 20% HC/AC: 0.96 age by current US: 38 weeks, 3 days. ETTA by current US: 06/26/2022. Estimated weight: 3604 grams, +/- 541 grams, 96 %. age by prior US: 36 weeks, 6 days. ETTA by prior US: 07/07/2022. Age by LMP: 36 weeks, 3 days. ETTA by LMP: 07/10/2022. US/OB Limited With Biometrics IMPRESSION: Single live uterine gestation with a mean gestational age of 36 weeks and 6 days. The measurements obtained following thin the normal expected range. Electronically Signed: Jones Bernardo MD at 10:51 EDT ,
== END | disposition home or self-care (01) ==
PROVIDERS: PCP Family Medicine; Referring Provider Obstetrics & Gynecology; Visit Provider Obstetrics & Gynecology
DX: O24.419 Gestational diabetes mellitus in pregnancy, unspecified control (principal); Z3A.36 36 weeks gestation of pregnancy
CPT/HCPCS: 76816; 87077; 87081; 87186

== ENCOUNTER 2022-07-09 04:56 | Inpatient (IN) | payer SELFPAY, OTHER ==
[2022-07-09] VITALS (19 sets, daily range): BP systolic 111–143; BP diastolic 62–88; PULSE 67–94; RESP 16–18; TEMP 36.2–36.9; O2SAT 95–100; BMI 37.0
[2022-07-09] MEDS: Lactated Ringers 1,000 ML 50 ML IV (05:11)
[2022-07-09] MEDS: LACTATED RINGERS 500 ML 999 ML IV (05:13)
[2022-07-09 05:25] LABS: Absolute Lymphocyte Count 2.79 X10^3/uL (0.83-4.51); Absolute Neutrophil Count 7.2 X10^3/uL (2.0-7.7); Basophil# 0.06 X10^3/uL; Basophil% 0.5 % (0-1); Eosinophil# 0.12 X10^3/uL; Eosinophils% 1.1 % (0-5); Hematocrit 35.2 % (37-47); Hemoglobin 11.7 g/dL (12.0-15.0); Lymphocyte # 2.79 X10^3/ul (0.83-4.51); Lymphocyte % 25.4 % (19-41); Mean Corp Hgb Conc 33.2 g/dL (32-36); Mean Corpuscular Hgb 28.5 pg (27.0-32.0); Mean Corpuscular Volume 85.6 fL (81-99); Mean Platelet Vol. 11.3 fl (6.2-12.0); Monocyte# 0.77 X10^3/uL; NRBC Flagged by Analyzer 0 % (0-5); Neutrophil # 7.19 X10^3/uL (2.7-7.7); Neutrophil % 65.4 % (47-70); Platelet Count 249 K/mm3 (150-450); RBC Distribution Width CV 14.4 % (11.6-14.6); RBC Distribution Width SD 44.3 fl (35.1-43.9); Red Blood Count 4.11 M/mm3 (4.2-5.4)
--- NOTE | 2022-07-09 05:32 | HP.PCM.OB_ITS ---
HPI - General General Date of Admission: 07/09/22 HPI Narrative GERARD ROSA, is a 31 y/o @ 39 weeks 6 days who presents to L&D in active labor at 5 cm dilated and 80% effaced, membranes intact and station at -3. 20 min after her initial exam she changed her cx to 6/90/-2. She has a history of 1 section due to failed version, breech presentation. Her second was a successful and she would like to proceed with a this . The risks, benefits, and alternatives were discussed with the patient including risk of 1% chance of uterine rupture and need for emergent section. A consent form was signed in our office Maternal Data Information ETTA Calculator Estimated Delivery Date Method Current WG Current Estimate 07/10/22 LMP (Certain) 39w 6d Other Estimates 07/08/22 Ultrasound #1 40w 1d PFSH PFS Medical History Low lying placenta nos or without hemorrhage, second trimester Home Medications vitamin#30 30 mg iron-10 mg iron-folic acid 1 mg-omg3 capsule 1 cap PO DAILY 02/11/19 [History Last Taken 07/08/22 21:00] blood sugar diagnostic (True Metrix Glucose Test Strip) #100 ea 05/12/22 [Rx Last Taken Unknown] blood-glucose meter (True Metrix Air Glucose Meter) #1 ea 05/12/22 [Rx Last Taken Unknown] Allergy/AdvReac Type Severity Reaction Status Date / Time No Known Allergies Allergy Verified 07/09/22 05:07 Family History Grandfather Colon cancer Diabetes Surgical History delivery delivered Social History number of children: 2 Smoking Status: Never smoker alcohol intake: never substance use type: does not use caffeine: Yes what type of physical activity do you participate in: walking seatbelt use: always do you feel safe at home: Yes additional social history: [employer] Patient is unemployed History 4 Elective abortions Hx Para 2 Spontaneous abortions 1 Hx # Term Pregnancies 2 Ectopic pregnancies Hx # Pregnancies Multiple births # of living children 2 Past Pregnancies Del. Date Name GA/Weeks Outcome Route Bth Weight Gen Labor Lgth Anesthesia Del Locatn Provider FOB 12/31/16 Wesley 40 live - full term 7lbs 3oz Male Pomkayla Murray 08/23/19 Pablo 40 live - full term 8lbs 1oz Male ep idural [facility] ZACHARY Trevor Delivery Date: 12/31/16 Last Updated by: Denia Carrillo Breech,failed version Delivery Date: 08/23/19 Last Updated by: Samia Salcedo SROM, 2 degree laceration Visit Details Expected Delivery Route/Plan patient counseled regarding risks/benefits of trial of labor versus repeat . ACOG/uptodate education given to patient. [] % likelihood of success per calculator TOLAC consent form signed: [] Labor Preferences- CB/BF classes: no labor support person: Trevor labor intervention preferences: pain management options preferred: epidural if needed cut cord/dad catch: cord : yes PP control planned: discussed discussed possible routes of delivery and associated risks: [] special requests: [] Plans Covid status: discussed Flu vaccine: discussed Tdap vaccine: declines Rhogam: na LARC form signed: yes Problem list reviewed and updated with the most current plan of care details and appropriate orders placed. Relevant counseling for the gestational age provided. Continue routine care and follow up unless otherwise noted in visit notes/problem list details OB Flowsheet Initial Weight: Not Recorded Date -?-?-?-?-?-?-?-?-?-?-?-?- EGA Weight BP Urine Prot -?-?-?-?-?-?-?-?-?-?-?-?- Glucose FHR FuHt Pres Dilation -?-?-?-?-?-?-?-?-?-?-?-?- Effaced St Visit Note 01/20/22 -?-?-?-?-?-?-?-?-?-?-?-?- 15w 4d 208 lb 8 oz 110/68 -?-?-?-?-?-?-?-?-?-?-?-?- 170 -?-?-?-?-?-?-?-?-?-?-?-?- JV- CRL consiste nt with LMP. pt to have glucola today and new ob labs. 02/17/22 -?-?-?-?-?-?-?-?-?-?-?-?- 19w 4d 207 lb 6 oz 114/60 Nega tive -?-?-?-?-?-?-?-?-?-?-?-?- Negative 150 -?-?-?--?-?-?-?-?-?-?-?-?- JV- ANATOMY ultr asound shows mild renal pyelectasis (5mm). normal 3 hr gtt. normal placenta. not low lying 03/16/22 -?-?-?-?-?-?-?-?-?-?-?-?- 23w 3d 207 lb 8 oz 108/64 Nega tive -?-?-?-?-?-?-?-?-?-?-?-?- Negative 160 -?-?-?-?-?-?-?-?-?-?-?-?- -No VB, LOF. G ood FM. Reviewed low lying placenta resolved. 04/15/22 -?-?-?-?-?-?-?-?-?-?-?-?- 27w 5d 209 lb 4 oz 110/60 Nega tive -?-?-?-?-?-?-?-?-?-?-?-?- Negative 145 27 -?-?-?-?-?-?-?-?--?-?-?-?- SM- no vb lof go od fm n oregualr ctx. 05/12/22 -?-?-?-?-?-?-?-?-?-?-?-?- 31w 4d 211 lb 8 oz 211 lb 8 oz 110/60 110/60 Negative -?-?-?--?-?-?-?-?-?-?-?-?- Negative 151 31 -?-?-?-?-?-?-?-?-?-?-?-?- MH-No VB, LOF. G ood FM. Is GDM, supplies and referrals placed. 05/25/22 -?-?-?-?-?-?-?-?-?--?-?-?- 33w 3d 213 lb 118/66 Negative -?-?-?-?-?-?-?-?-?-?-?-?- Negative 145 36 -?-?-?-?-?-?-?-?-?-?-?-?- JV- fasting leve ls are 80-100, pt will try to eat less carbs at nighttime and if still elevated after a week may need medication. no lof, vaginal bleeding, or dec fm plan for growth scan at 36 weeks. 06/09/22 -?--?-?-?-?-?-?-?-?-?-?-?- 35w 4d 214 lb 112/62 Negative -?-?-?-?-?-?-?-?-?-?-?-?- Negative 140 38 -?-?-?-?-?-?-?-?-?-?-?-?- SM- no vb lof go od fm no reuglar ctx, BS well controlled. 06/15/22 -?-?-?-?-?-?-?-?-?-?-?-?- 36w 3d 216 lb 2 oz 111/74 Nega tive -?-?-?-?-?-?-?-?-?-?-?-?- Negative 134 37 Cephalic 1 -?-?-?-?-?-?-?-?-?-?-?-?- 0 -3 JV- no lof , vaginaln bleeding, or dec fm. normal glucose levels. gbs collecged. consent today. JV- no lof, vaginal bleeding , or dec fm. normal glucose levels. gbs collecged. consent today. 06/23/22 -?-?-?-?-?-?-?-?-?-?-?-?- 37w 4d 216 lb 8 oz 108/72 Nega tive -?-?-?-?-?-?-?-?-?-?-?-?- Negative 130 37 Transverse 1 -?-?-?-?-?-?-?-?-?-?-?-?- 50 -3 JV- no lof , vaginal bleeding, or dec fm. GBS pos. labor precautions discussed. JV- no lof, vaginal bleeding , or dec fm. GBS pos. labor precautions discussed. BS well controlled 06/29/22 -?-?-?-?-?-?-?-?-?-?-?-?- 38w 3d 216 lb 8 oz 107/74 Nega tive -?-?-?-?-?-?-?-?--?-?-?-?- Negative 165 37 Cephalic 2 -?-?-?-?-?-?-?-?-?-?-?-?- 50 -3 JV- unable to strip membranes today because of high station, however head is now down and feels ballotable. labor precautions discussed. no lof, vaginal bleeding, or dec fm. glucose levels normal. 07/07/22 -?-?-?-?-?-?-?-?-?-?-?-?- 39w 4d 217 lb 112/82 Negative -?-?-?-?-?-?-?-?-?-?-?-?- Negative 140 39 Cephalic 3 .5 -?-?-?-?-?-?-?-?-?-?-?-?- 60 -2 SM- no vb lof good fm no regualr ctx SM- no vb lof good fm no reg ualr ctx membranes swept discussed IOL next week NST FHR Rate Baby A Baseline: 140 Variability:: Minimal and Moderate Accelerations:: 15 x 15 Decelerations:: Early and Late (one subtle late only ) NST Reactive:: Yes FHR Category:: Category II ROS Constitutional Constitutional: Denies change in weight, fatigue, fever(s), headache(s), poor appetite or weakness Eyes Eyes: Denies blurry vision, change in vision, seeing flashes or spots in vision ENT HEENT: Denies dizziness, headache(s), loss taste/smell or sore throat Cardiovascular Cardiovascular: Denies chest pain, dizziness, dyspnea, irregular heart rhythm, leg edema, palpitations, rapid heart rate or vomiting Respiratory/Chest Respiratory/Chest: Denies chest tightness, cough, dyspnea or breast pain Gastrointestinal Gastrointestinal: Denies abdominal pain, anorexia, constipation, cramping, diarrhea, hemorrhoids, vomiting or weight changes Genitourinary Genitourinary: Denies dysuria, flank pain, genital lesions, genital pain, urinary frequency or urinary urgency Musculoskeletal Musculoskeletal: Denies back pain, difficulty walking, joint pain, limited range of motion, muscle cramps or numbness Integumentary Integumentary: Denies lesions or unusual bruising Neurologic Neurologic: Denies abnormal movements, abnormal speech, dizziness, numbness, seizure-like activity or syncope Psychiatric Psychiatric: Denies anxiety, behavioral changes, change in appetite, change in libido, cognitive impairment, confusion, depression, difficulty concentrating, hallucinations or suicidal thoughts Endocrine Endocrinology: Denies excessive sweating, polydipsia or polyuria Hematologic/Lymphatic Hematologic/Lymphatic: Denies easy bleeding, easy bruising or lymphadenopathy Allergic/Immunologic Allergic/Immunologic: Denies itchy eyes, lip swelling, seasonal rhinorrhea, rhinitis, throat swelling, tongue swelling, eczemia, wheezing or asthma Vital Signs Vital Signs Vital Signs: 07/09/22 05:17 07/09/22 05:17 07/09/22 05:17 Pulse Rate 67 Blood Pressure 111/62 BP Systolic 111 BP Diastolic 62 Pulse Ox 95 Weight Weight: 215 lb 12.8 oz Body Mass Index (BMI) 37.0 Physical Exam Const alert, oriented x3, no apparent distress and healthy appearing General Appearance: cooperative; Negative for anxious HEENT normocephalic Face and Sinus: normal facial exam Eyes EOMs intact bilaterally and no scleral icterus General Eye: normal appearance of both eyes Neck full ROM and supple Lymph Lymphatic: no lymphadenopathy noted Chest Chest: abnormal inspection of the chest Resp normal respiratory effort Effort and Inspection: able to speak in complete sentences Cardio regular rate GI soft to palpation and non-tender Inspection: gravid Palpation: soft; Negative for tender external exam normal Speculum Exam - Cervix: other Bimanual Exam - Vag & Uterus: other cx: /- Amniotic Fluid: other membranes intact Back/Spine no CVA tenderness Extremity normal to inspection, full ROM and no clubbing, cyanosis or edema General Extremity: Negative for calf tenderness or edema Skin Lesions: no lesions Rashes: no rashes Psych mental status grossly normal Labs Labs Labs: Blood Type AB POSITIVE Antibody Screen NEGATIVE Hct 35.2 % (37-47) L Hgb 11.7 g/dL (12.0-15.0) L Obstetrics US Syphilis Total Ab Pending Rubella IgG Antibody 194.1 IU/mL Hep Bs Antigen Negative (Negative) HIV 1&2 Antibody Non-Reactive (Nonreactive) Glucose 1 Hr 50 gm 145 mg/dL (70-140) H Rhogam given: No Assessment & Plan (1) Positive GBS test: COMMENT: PCN in labor (2) Gestational diabetes: COMMENT: Growth US at 36 wk fasting levels are 80-100. she will work on cutting out carbs after 7 pm. 2hr pp normal. (3) Obesity affecting : COMMENT: 1 hr GTT at NO, encouraged healthy weight gain Nl 3 hr GTT (4) History of delivery: COMMENT: Plan TOLAC, first delivery csection, second delivery successful PLAN: Patient presents IAL, plan expectant management for , pitocin/AROM PRN if needed. Pain management: pt is unsure of plan. she was offered epidural and declined. she was offered nitrous gas and per hospital policy, since declined covid testing we are unable to allow nitrous gas. GBS positive plan IV PCN. Management of any complications: gestational diabetes- fasting this am is 106. will need to check again in 1 hr. policy here is to start insulin drip when glucose is between 120 and 140. I have reviewed the [facility] and made any clinically relevant updates. (5) Supervision of normal : COMMENT: PRR (SP labs) ETTA 07/10/22 girl PC WesleyPablo Trevor (6) : QUALIFIERS: Weeks of gestation: 39 weeks Qualified Code(s): Z3 A.39 - 39 weeks gestation of COMMENT: Declines NIPT and carrier testing. nl anatomy
[2022-07-09] MEDS: 0.9% Saline Lock 10 ML Syringe IV ×2 (05:45→09:56)
[2022-07-09 05:53] LABS: Amphetamine Urine VISTA NEGATIVE (<1000 ng/mL); Barbiturate Urine VISTA NEGATIVE (< 200 ng/mL); Benzodiazepine Urine VISTA NEGATIVE (< 200 ng/mL); Cocaine Urine VISTA NEGATIVE (< 300 ng/mL); Ecstacy Urine VISTA NEGATIVE (< 500 ng/mL); Methadone Urine VISTA NEGATIVE (< 300 ng/mL); PCP Urine VISTA NEGATIVE (< 25 ng/mL); THC Urine VISTA NEGATIVE (< 50 ng/mL); Vista UDS pH Range 6
--- NOTE | 2022-07-09 06:26 | PN_ITS ---
Progress Note pt is involuntarily pushing and nurse reports that she is 7-8 cm with a bulging bag. The patient consents verbally for AROM current tracing: FHT: 120's- 130's Moderate variability reactive one variable decelerations category II tracing Pump Back: q1-2 min Contractions cx: 8/100/-1 reviewed tracing abnormalities since last note: variability improved. One small variable decel after AROM at 6:29 A/P: TOLAC- going well currently with minimal intervention. continue close monitoring and anticipate soon.
[2022-07-09] MEDS: Oxytocin 30 units/NS 500 ml 30 UNITS/500 ML IV.SOLN 334 UNITS IV (06:51)
[2022-07-09 06:58] LABS: Chlamydia Trachomatis by PCR Negative (Negative); Neisserai gonorrhoeae by PCR Negative (Negative); Probe Check PASS; Sample Adequacy Control PASS; Specimen Processing Control PASS
--- NOTE | 2022-07-09 07:06 | OP.PCM_ITS ---
Assessment & Plan (1) : QUALIFIERS: Weeks of gestation: 39 weeks Qualified Code(s): Z3A.39 - 39 weeks gestation of COMMENT: Declines NIPT and carrier testing. nl anatomy (2) Supervision of normal : COMMENT: PRR (SP labs) ETTA 07/10/22 girl Pablo Bartholomew Trevor (3) History of delivery: COMMENT: Plan TOLAC, first delivery csection, second delivery successful (4) Obesity affecting : COMMENT: 1 hr GTT at NOB, encouraged healthy weight gain Nl 3 hr GTT (5) Gestational diabetes: COMMENT: Growth US at 36 wk fasting levels are 80-100. she will work on cutting out carbs after 7 pm. 2hr pp normal. (6) Positive GBS test: COMMENT: PCN in labor Maternal Data Information ETTA Calculator Estimated Delivery Date Method Current WG Current Estimate 07/10/22 LMP (Certain) 39w 6d Other Estimates 07/08/22 Ultrasound #1 40w 1d Final ETTA: 07/10/22 Final ETTA Source: LMP Gestational age: 39 weeks 6 days Vaginal Delivery Maternal Presentation Maternal Presentation: Active Labor Type of Induction: Amniotomy Operative Information Date of Procedure: 07/09/22 Pre-Operative Diagnosis: 39 weeks 6 days, active labor, prior section, desires TOLAC, gestational diabetes (GDMA1) Post-Operative Diagnosis: 39 weeks 6 days, active labor, prior section, desires TOLAC, gestational diabetes (GDMA1) Surgery / Procedure Performed: Spontaneous Vaginal Delivery Type of Anesthesia: None Estimated Blood Loss: 100cc Findings Description of Procedure: Patient began pushing and delivered the head in the KOURTNEY presentation. The head was delivered atraumatically. The anterior and posterior shoulders delivered without complication followed by the rest of the and the infant was placed on the maternal abdomen. Delayed cord clamping was employed for approximately 60 seconds. Cord was clamped and cut and gentle traction was applied to the cord and the placenta delivered spontaneously immediately following it was noted to be intact with three-vessel cord. The perineum and vagina were inspected and noted to have a 1st degree perineal laceration. This was repaired with a 2-0 vicryl suture EBL was 100 cc. Patient and infant tolerated delivery well. Presentation: Vertex and KOURTNEY Amniotic Membrane Rupture Type: Artificial Time of Membrane Rupture: 6:29am Amniotic Fluid Description: Clear Placental Delivery Description: Spontaneous Placenta Disposition: [facility] Cord Vessel Description: 3 Vessels Cord Entanglement: None Infant A Gender: Female (1 minute): 8 (5 minute): 9 Delayed Cord Clamping: Yes Post Vaginal Delivery Medications Given After Delivery: IV Pitocin Episiotomy Description: None Laceration: 1st degree Complication Complications: None Multi Select Codes Urinary/Genital Urinary/Genital CPT Codes: 78078 Vaginal Delivery [facility]
--- NOTE | 2022-07-09 07:10 | DCINST_ITS ---
Discharge Instructions Diet Discharge Diet: No restrictions Activity Discharge Activity: Return to Normal Activity, May Not Drive (while taking narcotic pain medications.) and May Shower May resume sexual activity in: 4-6 weeks Dressing / Incision Call your doctor if your incision/area has: Continuous Slow Oozing, Sudden Increased Bleeding, Increased Pain/ Swelling, Increased Redness and Foul Smelling Discharge Follow Up Care Please Follow Up With: Nedra Anderson, When: Call [phone] to make an appointment with your doctor in 6 weeks. If you had elevated blood pressure or 4th degree laceration, you will need to be seen in 2 weeks. Test Results: Test results from this visit will be discussed in further detail at your follow- up appointment, if applicable. Discharge Plan Admission Admit Date/Time: 07/09/22 04:56 Primary Reason for Your Visit: delivery Attending Provider: Nedra Anderson Primary Care Provider: Jerald Fleming Discharge Orders/Prescriptions Prescriptions: New ibuprofen 800 mg tablet 800 mg PO Q8H PRN (Reason: pain) 7 Days Qty: 30 0RF Continued vitamin#30 30 mg iron-10 mg iron-folic acid 1 mg-omg3 capsule 30 mg iron-10 mg iron-1 mg capsule 1 cap PO DAILY No Action (DME) blood-glucose meter [True Metrix Air Glucose Meter] Misc See Rx Instructions .ROUTE .MEDSUPPLY Qty: 1 0RF Rx Instructions: As directed (DME) True Metrix Glucose Test Strip Strip See Rx Instructions .ROUTE .MEDSUPPLY Qty: 100 4RF Rx Instructions: As directed Referrals / Follow Up: Jerald Fleming MD [Primary Care Provider] - Disposition Disposition (needs filled in before D/C Order can be placed): Home, Self Care
[2022-07-09] MEDS: Ibuprofen 600 MG Tablet PO ×2 (07:59→20:08)
[2022-07-09 08:59] LABS: Rubella IgG Reactive (Nonreactive); Syphilis Antibodies Non-reactive
[2022-07-09 09:36] LABS: Bedside Glucose 117 mg/dL (74-106)
[2022-07-09 09:36] LABS: Bedside Glucose 106 mg/dL (74-106)
[2022-07-09] MEDS: Acetaminophen 500 MG Tablet 1000 MG PO (09:37)
[2022-07-09 09:48] LABS: HIV - WCH Non-Reactive (Nonreactive); Hepatitis B Surface Antigen Non-Reactive (Nonreactive); Hepatitis C Antibody Non-Reactive (Nonreactive)
[2022-07-09 10:21] LABS: Bedside Glucose 120 mg/dL (74-106)
--- NOTE | 2022-07-09 11:06 | NURSING ---
Report received from Azul CANNON, taking over pt care at this time.
[2022-07-10 00:14] VITALS: BP 117/63; PULSE 74; PULSE 75; PULSE 79; RESP 16; TEMP 36.1; O2SAT 98
[2022-07-10] MEDS: Acetaminophen 500 MG Tablet 1000 MG PO (02:44)
[2022-07-10 04:51] VITALS: BP 138/75; PULSE 71
[2022-07-10 04:57] VITALS: BP 138/75; PULSE 71; RESP 16; TEMP 36.4
[2022-07-10 05:36] LABS: Bedside Glucose 95 mg/dL (74-106)
[2022-07-10 09:00] VITALS: BP 106/64; PULSE 79; RESP 16; TEMP 36.3
[2022-07-10 09:04] VITALS: BP 106/64; PULSE 79
--- NOTE | 2022-07-10 10:40 | PCM.PN.OB ---
Subjective Subjective Patient doing well without complaints. Tolerating PO. Ambulating and voiding without difficulty. Feeding well. Denies chest pain, shortness of breath, calf pain/swelling, fevers, chills, lightheadedness. Objective Data Objective Data Vital Signs: Vital Signs Temp Pulse Resp BP Pulse Ox O2 Del Method 97.4 F L 79 16 106/64 98 Room Air 07/10/22 09:00 07/10/22 09:04 07/10/22 09:00 07/10/22 09:04 07/10/22 00:14 07/10/22 09:00 Oxygen Delivery Method Room Air Weight: 215 lb 12.8 oz Body Mass Index (BMI) 37.0 Intake & Output: Intake and Output for Last 24 Hours 07/08/22 07/09/22 07/10/22 23:59 23:59 23:59 Intake Total 1326.67 / 1326.67 Output Total 400 / 400 Balance 926.67 / 926.67 Lab / Micro Data Result Diagrams: 07/09/22 05:10 Labs: Laboratory Results - last 24 hr 07/10/22 05:14: POC Glucose 95 Micro: Microbiology 07/09/22 05:45 Nasal Secretion SARS-CoV-2 Antigen (Rapid) - Final ROS Constitutional Constitutional: Denies chills, fatigue, fever(s), poor appetite or weakness Eyes Eyes: Denies blurry vision, change in vision, seeing flashes or spots in vision ENT HEENT: Denies dizziness, headache(s), loss taste/smell or sore throat Cardiovascular Cardiovascular: Denies chest pain, dizziness, dyspnea, irregular heart rhythm, palpitations or rapid heart rate Respiratory/Chest Respiratory/Chest: Denies chest tightness, cough, dyspnea or breast pain Gastrointestinal Gastrointestinal: Denies abdominal pain, constipation or vomiting Genitourinary Genitourinary: Denies dysuria or flank pain Musculoskeletal Musculoskeletal: Denies difficulty walking, joint pain, limited range of motion or numbness Neurologic Neurologic: Denies abnormal movements, abnormal speech, dizziness, numbness, seizure-like activity or syncope Psychiatric Psychiatric: Denies anxiety, behavioral changes, change in appetite, confusion, depression or suicidal thoughts Physical Exam Const alert, oriented x3 and no apparent distress General Appearance: cooperative and comfortable Resp normal respiratory effort Cardio regular rate GI normal to inspection, nondistended, normoactive bowel sounds GI Narrative: uterus is firm below umbilicus Palpation: soft Back/Spine no CVA tenderness and thoraco-lumbar ROM normal Extremity normal to inspection, no clubbing, cyanosis or edema, no calf tenderness and no pedal edema Psych mental status grossly normal, thought process normal, cooperative, affect normal, speech normal, activity/motor behavior normal, denies homicidal ideation and denies suicidal ideation Assessment & Plan (1) Status post vaginal delivery: COMMENT: Janina GODFREY 06/09/22 PLAN: s/p PPD # 1 1. routine post delivery care 2. breast feeding- support given 3. rh positive 4. rubella immune 5. ok to dc to home today.
[2022-07-10 13:56] VITALS: BP 124/77; PULSE 77; RESP 17; TEMP 36.4
--- NOTE | 2022-07-14 10:57 | NURSING ---
Rochelle Milan asked follow up questions at [facility] appt. Pt. does not report any new s+s. She reports having a great experience at and loved her labor nurse.
== END 2022-07-10 17:00 | disposition home or self-care (01) | DRG 807 ==
LOC: WPOUT 04:57 → WP 04:57
PROVIDERS: Admitting Provider Obstetrics & Gynecology; PCP Family Medicine; Visit Provider Obstetrics & Gynecology
DX: O76 Abnormality in fetal heart rate and rhythm complicating labor and delivery (principal); Z37.0 Single live birth; O24.420 Gestational diabetes mellitus in childbirth, diet controlled; O34.219 Maternal care for unspecified type scar from previous cesarean delivery; Z3A.39 39 weeks gestation of pregnancy; O70.0 First degree perineal laceration during delivery; O99.824 Streptococcus B carrier state complicating childbirth; Z87.59 Personal history of other complications of pregnancy, childbirth and the puerperium; O99.214 Obesity complicating childbirth
CPT/HCPCS: 59025; 59050; 80307; 82962; 85025; 86703; 86762; 86780; 86803; 86850; 86900; 86901; 87340; 87426; 87491; 87591; 99218; J7120; A4216; G0378

== ENCOUNTER → 2024-10-03 | Outpatient (CLI) | payer OTHER, SELFPAY | END | disposition home or self-care (01) | LOC: LABSPEC 11:19 | PROVIDERS: PCP Family Medicine; Referring Provider Advanced Practice Midwife; Visit Provider Advanced Practice Midwife | DX: Z34.83 Encounter for supervision of other normal pregnancy, third trimester (principal) | CPT/HCPCS: 87086; 87088 ==

== ENCOUNTER → 2024-11-13 | Outpatient (CLI) | payer OTHER, SELFPAY | END | disposition home or self-care (01) | PROVIDERS: PCP Family Medicine; Referring Provider Advanced Practice Midwife; Visit Provider Advanced Practice Midwife | DX: O09.93 Supervision of high risk pregnancy, unspecified, third trimester (principal); Z3A.00 Weeks of gestation of pregnancy not specified | CPT/HCPCS: 87081 ==

== ENCOUNTER 2024-12-17 05:20 | Inpatient (IN) | payer SELFPAY, OTHER ==
[2024-12-17] VITALS (39 sets, daily range): BP systolic 133–155; BP diastolic 74–92; PULSE 60–85; RESP 16–18; TEMP 36.4–37; O2SAT 98–100; BMI 36.3
[2024-12-17] MEDS: Lactated Ringers 1,000 ML 200 ML IV (05:35)
[2024-12-17 05:49] LABS: Absolute Lymphocyte Count 2.96 X10^3/uL (0.83-4.51); Absolute Neutrophil Count 6.2 X10^3/uL (2.0-7.7); Basophil# 0.06 X10^3/uL; Basophil% 0.6 % (0-1); Eosinophil# 0.09 X10^3/uL; Eosinophils% 0.9 % (0-5); Hematocrit 34.7 % (37-47); Hemoglobin 11.9 g/dL (12.0-15.0); Lymphocyte # 2.96 X10^3/ul (0.83-4.51); Lymphocyte % 29.7 % (19-41); Mean Corp Hgb Conc 34.3 g/dL (32-36); Mean Corpuscular Hgb 29.2 pg (27.0-32.0); Mean Corpuscular Volume 85.3 fL (81-99); Mean Platelet Vol. 11.5 fl (6.2-12.0); Monocyte# 0.63 X10^3/uL; Monocyte% 6.3 % (0-10); NRBC Flagged by Analyzer 0 % (0-5); Neutrophil # 6.15 X10^3/uL (2.7-7.7); Neutrophil % 61.9 % (47-70); Platelet Count 189 K/mm3 (150-450); RBC Distribution Width CV 15.2 % (11.6-14.6); RBC Distribution Width SD 46.5 fl (35.1-43.9); Red Blood Count 4.07 M/mm3 (4.2-5.4)
--- NOTE | 2024-12-17 06:06 | HP.PCM.OB_ITS ---
HPI - General General Date of Admission: 12/17/24 Date of Service: 12/17/24 HPI Narrative GERARD ROSA, is a 34 F 40.4 who presents to unit in active labor. upon arrival /-2. AROM at 0600 for meconium fluid and -1 Maternal Data Information ETTA Calculator Estimated Delivery Date Method Current WG Current Estimate 12/13/24 LMP (Certain) 40w 4d Final ETTA: 12/17/24 Final ETTA Source: US >20 weeks Gestational age: 40.0 PFSH PFSH Medical History (Updated 12/17/24 @ 06:08 by Alanis Snowden CNM) Breech malpresentation successfully converted to cephalic presentation Vaginal after Gestational diabetes Low lying placenta nos or without hemorrhage, second trimester Home Medications ?Medication ?Instructions ?Recorded ?Last Taken ?Type vitamin#30 30 mg iron-10 1 cap PO DAILY pregn armida 02/11/19 07/08/22 21:00 History mg iron-folic acid 1 mg-omg3 capsule Allergy/AdvReac Type Severity Reaction Status Date / Time No Known Allergies Allergy Verified 12/12/24 13:49 Family History Grandfather Colon cancer Diabetes Surgical History Status post vaginal delivery [place] teeth removed delivery delivered Social History adopted: No household members: spouse and children number of children: 3 current occupational status: unemployed current occupation: [employer] current occupational exposures/hazards: No pets and animals: Yes pets and animals: dog(s) and horse(s) history of recent travel: No sexually active: Yes Smoking Status: Never smoker alcohol intake: never substance use type: does not use well-balanced diet: daily or most days caffeine: No eating out: 1-3 times/week during the past year weight has: remained stable what type of physical activity do you participate in: walking frequency: 3-4 times per week duration: < 15 minutes/day lakhwinder/yazidi: Alevism seatbelt use: always do you feel safe at home: Yes additional social history: : 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 Date Name GA/Weeks Outcome Route Bth Weight Infant Gen Labor Lgth Anesthesia Del Locatn Provider FOB 12/31/16 Wesley 40 live - full term 7lbs 3oz Male [place] Karon Andersen [place] 08/23/19 Pablo 40 live - full term 8lbs 1oz Male ep idural [facility] ZACHARY [place] 07/09/22 Janina 39 live - full term 8lbs 5oz Female n one [facility] Dr. Bailey Delivery Date: 12/31/16 Last Updated by: Denia Carrillo Breech,failed version Delivery Date: 08/23/19 Last Updated by: Samia Salcedo SROM, 2 degree laceration Delivery Date: 07/09/22 Last Updated by: Kavitha Naranjo Gestational diabetes Visit Details Expected Delivery Route/Plan Labor Preferences- CB/BF classes: [] labor support person: [] labor intervention preferences: [] pain management options preferred: [] cut cord/dad catch: [] : [] PP control planned: [] discussed possible routes of delivery and associated risks: [] special requests: [] Plans Covid status: [] Flu vaccine: [] Tdap vaccine: [] Rhogam: [] LARC form signed: [] Problem list reviewed and updated with the most current plan of care details and appropriate orders placed. Relevant counseling for the gestational age provided. Continue routine care and follow up unless otherwise noted in visit notes/problem list details OB Flowsheet Initial Weight: Not Recorded Date -?-?-?-?-?-?-?-?-?-?-?-?- EGA Weight BP Urine Prot -?-?-?-?-?-?-?-?-?-?-?-?- Glucose FHR FuHt Pres Dilation -?-?-?-?-?-?-?-?-?-?-?-?- Effaced St Visit Note 10/03/24 -?-?-?-?-?-?-?-?-?-?-?-?- 29w 6d 212 lb 6 oz 104/68 Nega tive -?-?-?-?-?-?-?-?-?-?-?-?- Negative 135 30 -?-?-?-?-?-?-?-?-?-?-?-?- KW- transfer of care to [facility] from [facility]. Has had last 2 VBACs with [facility] (SM/JV) and desires TOLAC with this . NOB labs and anatomy scan and 28 week labs reviewed. No complications with this thus far. TOLAC and LARC done today. declines Tdap and flu. desires appts in [place] if possible until 36-37 weeks. 10/16/24 -?-?-?-?-?-?-?-?-?-?-?-?- 31w 5d 216 lb 113/74 Trace -?-?-?-?-?-?-?-?-?-?-?-?- Negative 145 33 -?-?-?-?-?-?-?-?-?-?-?-?- KW- no vb/lof/ct x. good fm. no concerns today 10/30/24 -?-?-?-?-?-?-?-?-?-?-?-?- 33w 5d 217 lb 2 oz 108/68 Nega tive -?-?-?-?-?-?-?-?-?-?-?-?- Negative 136 34 -?-?-?-?-?-?-?-?-?-?-?--?- MH-No VB, LOF. G ood FM. Denies concerns 11/13/24 -?-?-?-?-?-?-?-?-?-?-?-?- 35w 5d 220 lb 107/74 Negative -?-?-?-?-?-?-?-?-?-?-?-?- Negative 140 37 Cephalic 1 .5 -?-?-?-?-?-?-?-?-?-?-?-?- 60 -2 KW- no vb/ lof. having some irregular ctx. good fm. gbs today. labor precautions 11/21/24 -?-?--?-?-?-?-?-?-?-?-?-?- 36w 6d 220 lb 8 oz 106/71 Nega tive -?-?-?-?-?-?-?-?-?-?-?-?- Negative 150 37 Cephalic 3 .5 -?-?-?-?-?-?-?-?-?-?-?-?- 60 -2 KW- no vb/ lof/ctx. good fm. GBS was neg. labor precautions 12/05/24 -?-?-?-?-?-?-?-?-?-?-?-?- 38w 6d 224 lb 8 oz 115/80 Nega tive -?-?-?-?-?-?-?-?-?-?-?-?- Negative 165 41 Cephalic 4 -?-?-?-?-?-?-?-?-?-?-?-?- 50 -3 JV- head b allotable but stretchy dilated cervix, not much effacement. labor precautions discussed. no complaints today from patient. was over 20 minutes late. 12/12/24 -?-?-?-?-?-?-?-?-?-?-?-?- 39w 6d 223 lb 6 oz 113/77 Nega tive -?-?-?-?-?-?-?-?-?-?-?-?- Negative 55 40 Cephalic 4 -?-?-?-?-?-?-?-?-?-?-?-?- 60 -2 JV- pt sta aranza has on and off painful contractions. IOL set for saturday 12/16 at 7 am NST FHR Rate Baby A Baseline: 130 Variability:: Moderate Accelerations:: 15 x 15 Decelerations:: None NST Reactive:: Yes FHR Category:: Category I Uterine Activity:: 3-4 minutes ROS Constitutional Constitutional: Denies change in weight, fatigue, fever(s), headache(s), poor appetite or weakness Eyes Eyes: Denies blurry vision, change in vision, floaters, seeing flashes or spots in vision ENT HEENT: Denies dizziness, headache(s), loss taste/smell or sore throat Cardiovascular Cardiovascular: Denies chest pain, dizziness, dyspnea, irregular heart rhythm, lightheadedness, palpitations or rapid heart rate Respiratory/Chest Respiratory/Chest: Denies change in mental status, chest tightness, cough, dyspnea or breast pain Gastrointestinal Gastrointestinal: Denies anorexia, chewing difficulty, constipation, diarrhea or weight changes Genitourinary Genitourinary: Denies difficulty urinating, dysuria, flank pain, genital pain, urinary frequency or urinary urgency Musculoskeletal Musculoskeletal: Denies back pain, difficulty walking, extremity pain, joint pain, muscle cramps or muscle weakness Integumentary Integumentary: Denies lesions or unusual bruising Neurologic Neurologic: Denies abnormal movements, abnormal speech, dizziness, numbness, seizure-like activity, syncope or weakness Psychiatric Psychiatric: Denies behavioral changes, change in appetite, confusion, depression, homicidal ideation, suicidal ideation or suicidal thoughts Endocrine Endocrinology: Denies excessive sweating, polydipsia or polyuria Hematologic/Lymphatic Hematologic/Lymphatic: Denies anemia Allergic/Immunologic Allergic/Immunologic: Denies itchy eyes, lip swelling, throat swelling, tongue swelling or wheezing Vital Signs Vital Signs Vital Signs: 12/17/24 05:32 12/17/24 05:32 12/17/24 05:32 Temperature 97.9 F Temperature Source Temporal Pulse Rate Respiratory Rate 16 Blood Pressure BP Systolic BP Diastolic Pulse Ox 12/17/24 05:33 12/17/24 05:33 12/17/24 05:34 Temperature Temperature Source Pulse Rate 80 84 Respiratory Rate Blood Pressure 139/87 H BP Systolic 139 BP Diastolic 87 Pulse Ox 12/17/24 05:34 12/17/24 05:39 12/17/24 05:39 Temperature Temperature Source Pulse Rate 83 Respiratory Rate Blood Pressure BP Systolic BP Diastolic Pulse Ox 100 99 12/17/24 05:44 12/17/24 05:44 12/17/24 05:49 Temperature Temperature Source Pulse Rate 82 83 Respiratory Rate Blood Pressure BP Systolic BP Diastolic Pulse Ox 98 12/17/24 05:49 Temperature Temperature Source Pulse Rate Respiratory Rate Blood Pressure BP Systolic BP Diastolic Pulse Ox 100 Weight Weight: 225 lb Body Mass Index (BMI) 36.3 Physical Exam Const alert, oriented x3 and no apparent distress General Appearance: cooperative Orientation / Consciousness: awake HEENT normocephalic Neck full ROM Lymph Lymphatic: no lymphadenopathy noted Chest inspection of chest normal Resp normal respiratory effort and normal air movement Effort and Inspection: able to speak in complete sentences and symmetric chest movement GI soft to palpation and non-tender Inspection: gravid Palpation: soft; Negative for tender external exam normal Back/Spine normal to inspection Extremity normal to inspection and full ROM Skin no rashes or lesions noted Psych mental status grossly normal Appearance: grossly normal Speech: normal speech Labs Labs Labs: Blood Type AB POSITIVE Antibody Screen NEGATIVE Hct 34.7 % (37-47) L Hgb 11.9 g/dL (12.0-15.0) L Obstetrics Ultrasound Syphilis Total Ab Non-reactive Rubella IgG Antibody Reactive (Nonreactive) Hep Bs Antigen Non-Reactive (Nonreactive) Hepatitis C Antibody Non-Reactive (Nonreactive) HIV 1&2 Antibody Non-Reactive (Nonreactive) Glucose 1 Hr 50 gm 145 mg/dL (70-140) H Gest Glucose Tolerance MG/DL Rhogam given: No Assessment & Plan (1) Active labor: PLAN: Patient presents IAL, plan expectant management for , pitocin/AROM PRN if needed. Pain management: plans no epidural. GBS neg. Management of any complications: see list I have reviewed the PFSH and made any clinically relevant updates. Dr Zamora aware osf assessment, plan and admission. agrees with above (2) History of GBS (group B streptococcus) UTI, currently : (3) Family history of autism: COMMENT: Pt's brother (4) H/O gestational diabetes in prior , currently : COMMENT: 1hr: 113-current (5) H/O successful vaginal after , currently : COMMENT: Desires repeat (P C/S Breech) (csec x1, x2) (6) Supervision of high-risk : QUALIFIERS: Trimester: third trimester Qualified Code(s): O09.93 - Supervision of high risk , unspecified, third trimester COMMENT: PN labs and [facility]CT [place] , ETTA 12/13/24, PC: Pablo Olson (MARIO) & Janina (EPIFANIO), : Trevor (7) : QUALIFIERS: Weeks of gestation: 39 weeks Qualified Code(s): Z3A.39 - 39 weeks gestation of COMMENT: GBS neg, declines NIPT Charges/Coding Multi Select Codes Urinary/Genital Urinary/Genital CPT Codes: No Charge
[2024-12-17 06:16] LABS: Syphilis Antibodies Nonreactive (Nonreactive)
[2024-12-17] MEDS: Oxytocin 15 Units/NS 250ml 15 UNITS/250 ML IV.SOLN 334 UNITS IV (07:55)
--- NOTE | 2024-12-17 08:22 | OB.VAGDELI_ITS ---
Assessment & Plan (1) Active labor: (2) Family history of autism: COMMENT: Pt's brother (3) H/O gestational diabetes in prior , currently : COMMENT: 1hr: 113-current (4) H/O successful vaginal after , currently : COMMENT: Desires repeat (P C/S Breech) (csec x1, x2) (5) Supervision of high-risk : QUALIFIERS: Trimester: third trimester Qualified Code(s): O09.93 - Supervision of high risk , unspecified, third trimester COMMENT: PN labs and [facility] , ETTA 12/13/24, PC: Pablo Olson (SM) & Janina (JV), : Trevor (6) : QUALIFIERS: Weeks of gestation: 39 weeks Qualified Code(s): Z3A.39 - 39 weeks gestation of COMMENT: GBS neg, declines NIPT Maternal Data Information ETTA Calculator Estimated Delivery Date Method Current WG Current Estimate 12/13/24 LMP (Certain) 40w 4d Final ETTA: 12/13/24 Doctor Who Attended Delivery: Tila Del Toro Vaginal Delivery Maternal Presentation Maternal Presentation: Active Labor Vaginal Delivery Information Procedure Performed: Spontaneous Vaginal Delivery Surgeon/Practitioner: Nedra Anderson Date of Procedure: 12/17/24 Pre-Procedure Diagnosis: active labor, history of section Post-Procedure Diagnosis: active labor, history of section Type of anesthesia: None Estimated Blood Loss: 200cc Time of Delivery: 07:54 Findings Description of procedure: Patient began pushing and delivered the head in the KOURTNEY presentation. The head was delivered atraumatically and a triple nuchal cord was identified and easily reduced over the 's head. The anterior and posterior shoulders delivered without complication followed by the rest of the and the was placed on the maternal abdomen. Delayed cord clamping was employed for approximately 60 seconds. Cord was clamped and cut and gentle traction was applied to the cord and the placenta delivered spontaneously immediately following it was noted to be intact with three-vessel cord. The perineum and vagina were inspected and noted to have a 1st degree laceration. A 3-0 vicryl was used to repair the laceration. EBL was 200. Patient and tolerated delivery well. Procedure findings: viable female infant Licha Presentation: Vertex Amniotic Fluid Description: Lightly stained meconium Placental Delivery Description: Spontaneous Placenta Disposition: [facility] Specimen collected: No Cord Vessel Description: 3 Vessels Cord Entanglement: Other (around neck x3 without compression ) Nuchal Cord Compression: Without compression Cord Gases: ABG and VBG A Gender: Female (1 minute): 7 (5 minute): 9 Delayed Cord Clamping: No Vp [employer] branch assistant: No Post Vaginal Deli Medications given after delivery: IV Pitocin Episiotomy Description: None Laceration: 1st degree Complication Complications: No Multi Select Codes Urinary/Genital Urinary/Genital CPT Codes: 68637 Vaginal Delivery [facility]
--- NOTE | 2024-12-17 08:26 | DCINST_ITS ---
Discharge Instructions Diet Discharge Diet: No restrictions DC O2, CPAP, BIPAP needs Home O2 Discharge instructions: No Dressing / Incision Discharge Activity: Return to Normal Activity, May Not Drive (while taking narcotic pain medications.) and May Shower May resume sexual activity in: 4-6 weeks Dressing / Incision Call your doctor if your incision/area has: Continuous Slow Oozing, Sudden Increased Bleeding, Increased Pain/ Swelling, Increased Redness and Foul Smelling Discharge Follow Up Care Please Follow Up With: Nedra Anderson DO When: Call [phone] to make an appointment with your doctor in 6 weeks. If you had elevated blood pressure or 4th degree laceration, you will need to be seen in 2 weeks. Test Results: Test results from this visit will be discussed in further detail at your follow- up appointment, if applicable. Discharge Plan Admission Admit Date/Time: 12/17/24 05:20 Attending Provider: Alanis Snowden Primary Care Provider: Jerald Fleming Discharge Orders/Prescriptions Prescriptions: No Action PNV #[id number] 30 mg iron-10 mg iron-1 mg capsule 1 cap PO DAILY Referrals / Follow Up: Jerald Fleming MD [Primary Care Provider] -
[2024-12-17] MEDS: Oxytocin 15 Units/NS 250ml 15 UNITS/250 ML IV.SOLN 83 UNITS IV (08:36)
[2024-12-17] MEDS: Acetaminophen 500 MG Tablet 1000 MG PO (09:52)
[2024-12-17 09:58] LABS: Hepatitis C Antibody Nonreactive (Nonreactive)
[2024-12-17 11:23] LABS: Rubella IgG REAC (Nonreactive)
[2024-12-17] MEDS: Ibuprofen 600 MG Tablet PO (11:53)
[2024-12-17 13:08] LABS: HIV Nonreactive (Nonreactive)
[2024-12-18] VITALS: BP 139/80; PULSE 76; RESP 14; TEMP 36.5; O2SAT 97
[2024-12-18] MEDS: Acetaminophen 500 MG Tablet 1000 MG PO (01:45)
[2024-12-18 04:00] VITALS: BP 120/78; PULSE 64; RESP 14; TEMP 36.9; O2SAT 98
[2024-12-18] MEDS: Ibuprofen 600 MG Tablet PO (08:11)
[2024-12-18 08:14] VITALS: BP 126/83; PULSE 73; RESP 16; TEMP 36.3; O2SAT 96
--- NOTE | 2024-12-18 10:03 | PN.OBGYN_ITS ---
Subjective Subjective Patient doing well without complaints. Tolerating PO. Ambulating and voiding without difficulty. infant feeding well. Denies chest pain, shortness of breath, calf pain/swelling, fevers, chills, lightheadedness. Objective Data Objective Data Vital Signs: Vital Signs Temp Pulse Resp BP Pulse Ox O2 Del Method 97.4 F L 73 16 126/83 H 96 Room Air 12/18/24 08:14 12/18/24 08:14 12/18/24 08:14 12/18/24 08:14 12/18/24 08:14 12/18/24 08:14 Oxygen Delivery Method Room Air Weight: 225 lb Body Mass Index (BMI) 36.3 Intake & Output: Intake and Output for Last 24 Hours 12/16/24 12/17/24 12/18/24 23:59 23:59 23:59 Intake Total 1202.34 / 1202.34 Output Total 600 / 600 Balance 602.34 / 602.34 Lab / Micro Data 12/17/24 05:35 Labs: Laboratory Results - last 24 hr 12/17/24 08:57: HIV 1&2 Antibody Nonreactive, Rubella IgG Antibody REAC ROS Constitutional Constitutional: Reports systems reviewed and no addt'l complaints, except as documented Cardiovascular Cardiovascular: Reports systems reviewed and no addt'l complaints, except as documented Respiratory/Chest Respiratory/Chest: Reports systems reviewed and no addt'l complaints, except as documented Gastrointestinal Gastrointestinal: Reports systems reviewed and no addt'l complaints, except as documented Physical Exam Const alert, oriented x3 and no apparent distress HEENT Head and Scalp: atraumatic Resp normal respiratory effort GI soft to palpation and non-tender Bimanual Exam - Vag & Uterus: uterus non-tender Uterus Palpation: uterus fundus firm (below Umbilicus) Assessment & Plan (1) : QUALIFIERS: Weeks of gestation: 39 weeks Qualified Code(s): Z 3A.39 - 39 weeks gestation of COMMENT: GBS neg, declines NIPT (2) Supervision of high-risk : QUALIFIERS: Trimester: third trimester Qualified Code(s): O09.93 - Supervision of high risk , unspecified, third trimester COMMENT: PN labs and [facility] , ETTA 12/13/24, PC: Pablo Olson (MARIO) & Janina (JV), : Trevor PLAN: Plan post dc home today
== END 2024-12-18 12:30 | disposition home or self-care (01) | DRG 807 ==
PROVIDERS: Obstetrics & Gynecology; Admitting Provider Advanced Practice Midwife; PCP Family Medicine; Referring Provider Advanced Practice Midwife; Visit Provider Advanced Practice Midwife
DX: O34.219 Maternal care for unspecified type scar from previous cesarean delivery (principal); Z37.0 Single live birth; O69.81X0 Labor and delivery complicated by cord around neck, without compression, not applicable or unspecified; O77.0 Labor and delivery complicated by meconium in amniotic fluid; O99.824 Streptococcus B carrier state complicating childbirth; O70.0 First degree perineal laceration during delivery; Z3A.40 40 weeks gestation of pregnancy; Z86.32 Personal history of gestational diabetes; Z87.59 Personal history of other complications of pregnancy, childbirth and the puerperium
CPT/HCPCS: 59025; 59050; 85025; 86703; 86762; 86780; 86803; 86850; 86900; 86901; 99221; G0378

== ENCOUNTER → 2025-01-29 | Outpatient (CLI) | payer OTHER, SELFPAY ==
[2025-01-31 16:09] LABS: HPV APTIMA, High Risk Negative (Negative)
== END | disposition home or self-care (01) ==
LOC: LABSPEC 11:39
PROVIDERS: PCP Family Medicine; Referring Provider Nurse Practitioner Women's Health; Visit Provider Nurse Practitioner Women's Health
DX: Z12.4 Encounter for screening for malignant neoplasm of cervix (principal)
CPT/HCPCS: 87624; 88175; G0145